=== PATIENT | female | born 2000 | race Caucasian/White ===

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

== ENCOUNTER 2021-04-16 18:37 | Emergency (ER) | payer OTHER, SELFPAY ==
[2021-04-16 18:38] VITALS: BP 102/75; PULSE 84; RESP 16; TEMP 36.4; O2SAT 100; BMI 25.4
--- NOTE | 2021-04-16 19:04 | EKG12_ITS ---
Test Reason : DYSRYTHMIA Blood Pressure : / mmHG Vent. Rate : 082 BPM Atrial Rate : 082 BPM P-R Int : 134 ms QRS Dur : 076 ms QT Int : 384 ms P-R-T Axes : 021 076 026 degrees QTc Int : 448 ms Normal sinus rhythm Normal ECG Confirmed by AMOR ADAM, BEN ([id number]), video effects editor ASHLEY BYRNES ([id number]) on 04/21/2021 7:34:38 AM Referred By: ESTHER Confirmed By:BEN CHINCHILLA MD
--- NOTE | 2021-04-16 19:05 | EX.ED.DYSGE1 ---
HPI History of Present Illness Chief Complaint: General Illness Informant: patient Narrative Narrative: 21-year-old female states that yesterday morning she woke with a temperature of 100.5. She noted a sore throat and fatigue and nausea. She went to urgent care where she had a Covid test that was negative. States she also did a home Covid test that was negative. She states that she is not had any fever today or sore throat but continues to feel fatigued and nausea has now developed a pain in her mid sternum of her chest. She states that it is intermittent there is a sharp component but a heaviness component as well. She notes no cough or significant rhinorrhea PFSH PFS Medical History (Updated 04/16/21 @ 20:[address] Williams Castellon DO) Anxiety Depression Migraine Physical exam, pre-employment Home Medications fluoxetine 20 mg PO DAILY 04/16/21 [History Last Taken Unknown] norgestimate-ethinyl estradiol [Aisha] 1 tab PO DAILY 04/16/21 [History Last Taken Unknown] ondansetron 4 mg PO Q6H PRN PRN #15 tab 04/16/21 [Rx Last Taken Unknown] sumatriptan succinate 50 mg PO X1 PRN 04/16/21 [History Last Taken Unknown] topiramate 25 mg PO DAILY 04/16/21 [History Last Taken Unknown] Allergy/AdvReac Type Severity Reaction Status Date / Time No Known Allergies Allergy Verified 04/16/21 18:40 Surgical History (Updated 04/16/21 @ 19:52 by Angelic Espinoza) History of cholecystectomy Social History (Updated 04/16/21 @ 19:[address] Williams Castellon DO) Smoking Status: Never smoker substance use type: does not use ROS ROS ED Constitutional Constitutional ED: Reports fever(s); Denies chills or weight loss Eyes Eyes: Denies change in vision or diplopia ENT ENT ED: Reports sore throat; Denies ear pain or rhinorrhea Cardiovascular Cardiovascular: Denies chest pain, orthopnea, palpitations or racing heartbeat Respiratory/Chest Respiratory/Chest: Denies cough, dyspnea or orthopnea Gastrointestinal Gastrointestinal: Reports nausea; Denies abdominal pain, diarrhea or vomiting Genitourinary Genitourinary ED: Denies dysuria, hematuria or urinary frequency Musculoskeletal Musculoskeletal: Denies arthralgias or myalgias Integumentary Denies abscess or rash Neurologic Neurologic: Denies headache(s) or weakness Psychiatric Psychiatric: Denies anxiety, depression, suicidal ideation or suicidal thoughts Endocrine Endocrinology: Denies polydipsia, polyphagia or polyuria Allergic/Immunologic Allergic/Immunologic ED: Denies mouth swelling, tongue swelling or urticaria EXAM Physical Exam Const Vital Signs: 04/16/21 18:38 04/16/21 19:51 Temperature 97.6 F L Temperature Source Temporal Pulse Rate 84 Respiratory Rate 16 Respiratory Effort Normal Non-Labored Respiratory Pattern Normal Blood Pressure 102/75 Blood Pressure Mean 84 Pulse Ox 100 Oxygen Delivery Method Room Air Positive well nourished and well developed General Appearance ED: well developed HEENT Reports normocephalic, head/scalp atraumatic and moist mucous membranes Eyes PERRL and EOMs intact bilaterally Neck no lymphadenopathy, supple and no JVD Resp normal respiratory effort and clear to auscultation bilaterally Cardio regular rate, regular rhythm and no murmurs GI normal to inspection, nondistended, normoactive bowel sounds and non-tender Palpation: soft Back/Spine no CVA tenderness and normal ROM Extremity normal to inspection General Extremety ED: Negative for edema General Extremity: Negative for edema Neuro oriented x3 and CN's II-XII intact bilaterally Sensorium / Orientation: alert Motor Exam: strength 5/5 throughout Psych mental status grossly normal Mood & Affect: Negative for depressed or tearful Skin no rashes or lesions noted and no wounds MDM MDM MDM Narrative Medical decision making narrative: Basic blood work including troponin were normal. Urinalysis negative. My interpretation of the chest x-ray is no acute process. Patient's EKG is normal. Patient's having nausea. She said to negative Covid test I do not think we need to repeat this at this time. She is not leukopenic. I will write for Zofran and would recommend taking some Pepcid or Prilosec. Lab Data Attestation: I reviewed the patient's lab results. Labs: Laboratory Results - last 24 hr 04/16/21 04/16/21 04/16/21 19:22 19:22 19:30 WBC 10.5 RBC 5.06 Hgb 11.9 L Hct 38.4 MCV 75.9 L MCH 23.5 L MCHC 31.0 L RDW Std Deviation 45.6 H RDW Coeff of Clif 16.8 H Plt Count 348 MPV 10.5 Immature Gran % (Auto) 0.400 Neut % (Auto) 76.3 H Lymph % (Auto) 15.6 L [place] % (Auto) 6.6 Eos % (Auto) 0.8 Baso % (Auto) 0.3 Absolute Neuts (auto) 8.0 H Absolute Lymphs (auto) 1.63 Nucleated RBC % 0 Sodium 138 Potassium 3.3 L Chloride 106 Carbon Dioxide 22.0 Anion Gap 10 BUN 5 L Creatinine 0.89 Estim Creat Clear Calc 86.34 Est GFR (MDRD) Af Amer 102 Est GFR (MDRD) Non-Af 85 BUN/Creatinine Ratio 5.6 L Glucose 84 Calcium 9.1 Total Bilirubin 0.40 AST 24 ALT 27 Alkaline Phosphatase 55 Troponin I High Sens 5 Total Protein 8.4 H Albumin 3.7 Globulin 4.7 H Albumin/Globulin Ratio 0.8 L Urine Color Yellow Urine Clarity Clear Urine pH 6.5 Ur Specific [place] 1.010 Urine Protein Negative Urine Glucose (UA) Normal Urine Ketones 5 H Urine Occult Blood Negative Urine Nitrite Negative Urine Bilirubin Negative Urine Urobilinogen Normal Ur Leukocyte Esterase 100 H Urine RBC 0 SEEN Urine WBC 0-5 SEEN Ur Squamous Epith Cells 0-5 SEEN Urine Bacteria 0 SEEN Urine Mucus 0 SEEN Radiography Diagnostic Testing: Radiology Impression Chest X-Ray 04/16/21 19:18 IMPRESSION: Normal x-ray examination of the chest. Electronically Signed: Олег Zayas DO at 19:48 EDT Tel [phone], Service support , EKG Initial EKG: Attestation: I personally reviewed and interpreted this EKG as follows: Comments: Normal sinus rhythm with a ventricular rate of 82 bpm Discharge Plan Triage Chief Complaint: General Illness ED Provider: Williams Castellon Dx/Rx/DC Orders Clinical Impression: Nausea, Chest pain Prescriptions: New ondansetron [ondansetron] 4 MG tablet 4 mg PO Q6H PRN PRN (Reason: Nausea) Qty: 15 RF: 0 No Action norgestimate-ethinyl estradiol [Aisha] 0.25-35 mg-mcg tablet 1 tab PO DAILY RF: 0 sumatriptan succinate 50 mg tablet 50 mg PO X1 PRN (Reason: Migraine Headache) RF: 0 topiramate 25 mg tablet 25 mg PO DAILY RF: 0 fluoxetine 20 mg capsule 20 mg PO DAILY RF: 0 Primary Care Provider: Maria E Jacobs Referrals: Maria E Jacobs MD [Primary Care Provider] - 1 Week if not improving Activity Restrictions/Additional Instructions: I would recommend taking Pepcid or Prilosec for the next couple days. Return if worsening or any concerns Disposition Disposition: Home, Self Care
--- NOTE | 2021-04-16 19:18 | RAD_ITS ---
STUDY: X-RAY CHEST REASON FOR EXAM: Female, 21 years old. Chest pain TECHNIQUE: Frontal view COMPARISON: None. FINDINGS: The lungs are clear and expanded. There is no demonstrated pleural abnormality. Normal size heart. Normal mediastinum and veronica. Normal visualized pulmonary arteries. Normal visualized aortic arch and descending thoracic aorta. Normal visualized thoracic spine. Normal visualized ribs, clavicles, and shoulders. There is no demonstrated abnormality of the visualized soft tissue structures of the upper abdomen. RAD/Chest 1 View (Portable) IMPRESSION: Normal x-ray examination of the chest. Electronically Signed: Олег Zayas DO at 19:48 EDT Tel [phone], Service support ,
[2021-04-16 19:31] LABS: Absolute Lymphocyte Count 1.63 X10^3/uL (0.83-4.51); Basophil# 0.03 X10^3/uL; Basophil% 0.3 % (0-1); Eosinophil# 0.08 X10^3/uL; Eosinophils% 0.8 % (0-5); Hematocrit 38.4 % (37-47); Hemoglobin 11.9 g/dL (12.0-15.0); Lymphocyte # 1.63 X10^3/ul (0.83-4.51); Lymphocyte % 15.6 % (19-41); Mean Corpuscular Hgb 23.5 pg (27.0-32.0); Mean Corpuscular Volume 75.9 fL (81-99); Mean Platelet Vol. 10.5 fl (6.2-12.0); Monocyte# 0.69 X10^3/uL; Monocyte% 6.6 % (0-10); NRBC Flagged by Analyzer 0 % (0-5); Neutrophil # 7.98 X10^3/uL (2.7-7.7); Neutrophil % 76.3 % (47-70); Platelet Count 348 K/mm3 (150-450); RBC Distribution Width CV 16.8 % (11.6-14.6); RBC Distribution Width SD 45.6 fl (35.1-43.9); Red Blood Count 5.06 M/mm3 (4.2-5.4); White Blood Count 10.5 K/mm3 (4.4-11.0)
[2021-04-16 19:44] LABS: Bacteria 0 SEEN /hpf (None Seen); Mucous, Urine 0 SEEN /hpf (<or=2+); Red Blood Cells-Urine 0 SEEN /hpf (0-5)
[2021-04-16] MEDS: Ondansetron 4 MG/2 ML Vial IV (19:48)
[2021-04-16 19:51] LABS: ALB/GLOB Ratio 0.8 RATIO (0.9-2.4); AST(SGOT) 24 U/L (15-37); Alanine Aminotransfer ALT/SGPT 27 U/L (13-56); Albumin, Serum 3.7 g/dL (3.2-5.0); Alkaline Phosphatase 55 U/L (45-117); Anion Gap 10 (5-15); BUN 5 mg/dL (7-18); BUN/Creat Ratio 5.6 RATIO (10-20); Calcium,Total 9.1 mg/dL (8.5-10.1); Chloride 106 mmol/L (98-107); Creatinine, Serum 0.89 mg/dL (0.55-1.02); EST Glomerular Filtration Rate 85 mL/min (>60); Est Glom Filt Rate - Afr Amer 102 mL/min (>60); Estimated Creatinine Clearance 86.34 ml/min; Globulin 4.7 g/dL (2.2-4.2); Glucose 84 mg/dL (74-106); Potassium 3.3 mmol/L (3.5-5.1); Protein, Total 8.4 g/dL (6.4-8.2); Sodium Level 138 mmol/L (136-145); Troponin-I HS 5 pg/mL (3.0-54.0)
[2021-04-16 20:10] LABS: Color, Urine Yellow (Yellow); Glucose, Dipstick Normal (Normal); Ketone-Dipstick 5 mg/dl (Negative); Leukocyte Esterase-Dipstick 100 /ul (Negative); Nitrite-Dipstick Negative (Negative); Occult Blood-Urine Negative /ul (Negative); Protein-Dipstick Negative (Negative); Urine Bilirubin Dipstick Negative (Negative); Urine Clarity Clear (Clear); Urine Urobilinogen Normal (Normal); Urine pH 6.5 (5.0 - 8.0)
[2021-04-16 20:23] LABS: Squamous Epithelial Cells - UA 0-5 SEEN /hpf (5-10); White Blood Cells 0-5 SEEN /hpf (0-5)
== END 2021-04-16 21:11 | disposition home or self-care (01) ==
PROVIDERS: Emergency Provider Emergency Medicine; PCP Internal Medicine
DX: R11.0 Nausea (principal); R07.89 Other chest pain; J02.9 Acute pharyngitis, unspecified; R53.83 Other fatigue; G43.909 Migraine, unspecified, not intractable, without status migrainosus; F32.9 Major depressive disorder, single episode, unspecified; F41.9 Anxiety disorder, unspecified; Z79.899 Other long term (current) drug therapy
CPT/HCPCS: 71045; 80053; 81001; 84484; 85025; 93005; 96374; 99283; A4216; J2405

== ENCOUNTER 2021-11-26 13:05 | Emergency (ER) | payer OTHER, SELFPAY ==
[2021-11-26 13:06] VITALS: BP 119/82; PULSE 81; RESP 18; TEMP 37.5; O2SAT 98; BMI 24.0
[2021-11-26 14:00] LABS: Bacteria 0 SEEN /hpf (None Seen); Mucous, Urine 0 SEEN /hpf (<or=2+)
[2021-11-26 14:02] LABS: Color, Urine Yellow (Yellow); Glucose, Dipstick Normal (Normal); Ketone-Dipstick 15 mg/dl (Negative); Leukocyte Esterase-Dipstick 25 /ul (Negative); Nitrite-Dipstick Negative (Negative); Occult Blood-Urine 10 /ul (Negative); Protein-Dipstick 15 mg/dl (Negative); Urine Bilirubin Dipstick Negative (Negative); Urine Clarity Sl. Cloudy (Clear); Urine Urobilinogen Normal (Normal)
[2021-11-26 14:08] LABS: Internal QC Validated? YES +Cl - CLEAR BKGD; Pregnancy, Urine Negative Negative; Red Blood Cells-Urine 0-5 SEEN /hpf (0-5); Squamous Epithelial Cells - UA 0-5 SEEN /hpf (5-10); White Blood Cells 0-5 SEEN /hpf (0-5)
[2021-11-26] MEDS: Ondansetron 4 MG/2 ML Vial IV (14:38)
--- NOTE | 2021-11-26 15:52 | EDS_ITS ---
HPI HPI - GI History of Present Illness Chief Complaint: Nausea/Vomiting Narrative Narrative: 21-year-old female presenting with nausea, vomiting, diffuse abdominal cramping. She states she had 1 episode of diarrhea. She states he had nasal congestion a couple days ago and now this is progressed. She denies cough or shortness of breath. No chest pain. 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 Patient did have some Zofran left over from previous which helped initially but she ran out. Not concerned for . No urinary symptoms. [facility] Medical History Anxiety Depression Migraine Physical exam, pre-employment Home Medications fluoxetine 20 mg PO DAILY 04/16/21 [History Last Taken Unknown] norgestimate-ethinyl estradiol [Aisha] 1 tab PO DAILY 04/16/21 [History Last Taken Unknown] ondansetron 4 mg PO Q6H PRN PRN #15 tab 04/16/21 [Rx Last Taken Unknown] sumatriptan succinate 50 mg PO X1 PRN 04/16/21 [History Last Taken Unknown] topiramate 25 mg PO DAILY 04/16/21 [History Last Taken Unknown] ondansetron 4 mg PO Q8H PRN #14 tab 11/26/21 [Rx Last Taken Unknown] Allergy/AdvReac Type Severity Reaction Status Date / Time No Known Allergies Allergy Verified 11/26/21 13:07 Surgical History History of cholecystectomy Social History Smoking Status: Never smoker substance use type: does not use ROS ROS ED Constitutional Constitutional ED: Denies chills or fever(s) ENT ENT ED: Reports rhinorrhea Cardiovascular Cardiovascular: Denies chest pain or palpitations Respiratory/Chest Respiratory/Chest: Denies cough or dyspnea Gastrointestinal Gastrointestinal: Reports abdominal pain, diarrhea, nausea and vomiting Genitourinary Genitourinary ED: Denies dysuria or hematuria Musculoskeletal Musculoskeletal: Reports myalgias; Denies arthralgias or neck pain Integumentary Denies rash Neurologic Neurologic: Denies headache(s) or weakness Psychiatric Psychiatric: Denies anxiety or depression EXAM Physical Exam Const Vital Signs: 11/26/21 13:06 Temperature 99.5 F H Temperature Source Temporal Pulse Rate 81 Respiratory Rate 18 Blood Pressure 119/82 H Blood Pressure Mean 94 Pulse Ox 98 Oxygen Delivery Method Room Air Positive well nourished General Appearance ED: NAD; Negative for pallor HEENT Reports moist mucous membranes normocephalic and atraumatic Eyes PERRL and EOMs intact bilaterally Neck supple Resp normal respiratory effort and clear to auscultation bilaterally Cardio regular rate and regular rhythm GI non-distended Auscultation: normoactive bowel sounds Palpation: soft; Negative for guarding, rigid or rebound tenderness present Neuro Sensorium / Orientation: alert, oriented to person, oriented to place and oriented to time Psych mental status grossly normal and thought process normal Skin General Skin Exam: Negative for jaundice or pallor Lesions: no lesions Rashes: no rashes MDM MDM MDM Narrative Medical decision making narrative: Patient presents with nausea and vomiting. I did check a urinalysis which is negative for infection. hCG negative. Patient's abdominal exam is benign. After examining her the patient was amenable to trying Zofran before doing blood work and imaging. After given Zofran she is very comfortable and feels very much improved. Repeat abdominal exam still benign. Vital signs are stable and she is afebrile. I did not believe she needed blood work or imaging. At this point she request to be tested for COVID although she tested herself prior to coming and it was negative. COVID testing here is negative. Patient will be given Zofran for home. She is counseled to keep hydrated. Tylenol and ibuprofen for any fever or chills. Patient discharged home in stable condition. Impression: 1 abdominal pain 2 nausea/vomiting 3. Diarrhea Lab Data Attestation: I reviewed the patient's lab results. Labs: Laboratory Results - last 24 hr 11/26/21 13:58 Urine Color Yellow Urine Clarity Sl. Cloudy Urine pH 8.0 Ur Specific [place] 1.010 Urine Protein 15 H Urine Glucose (UA) Normal Urine Ketones 15 H Urine Occult Blood 10 H Urine Nitrite Negative Urine Bilirubin Negative Urine Urobilinogen Normal Ur Leukocyte Esterase 25 H Urine RBC 0-5 SEEN Urine WBC 0-5 SEEN Ur Squamous Epith Cells 0-5 SEEN Urine Bacteria 0 SEEN Urine Mucus 0 SEEN Urine Test Negative Discharge Plan Triage Chief Complaint: Nausea/Vomiting ED Provider: Boris Berg Dx/Rx/DC Orders Instructions: ED Vomiting (Adult) Prescriptions: New ondansetron 4 mg tablet,disintegrating 4 mg PO Q8H PRN (Reason: nausea and vomiting) Qty: 14 RF: 0 No Action norgestimate-ethinyl estradiol [Aisha] 0.25-35 mg-mcg tablet 1 tab PO DAILY RF: 0 sumatriptan succinate 50 mg tablet 50 mg PO X1 PRN (Reason: Migraine Headache) RF: 0 topiramate 25 mg tablet 25 mg PO DAILY RF: 0 fluoxetine 20 mg capsule 20 mg PO DAILY RF: 0 ondansetron [ondansetron] 4 MG tablet 4 mg PO Q6H PRN PRN (Reason: Nausea) Qty: 15 RF: 0 Primary Care Provider: Maria E Jacobs Referrals: Maria E Jacobs MD [Primary Care Provider] - Juan C Johnsno DO [STAFF PHYSICIAN] - 3-5 Days Disposition Disposition: Home, Self Care Discharge Date/Time: 11/26/21 15:36
== END 2021-11-26 15:36 | disposition home or self-care (01) ==
PROVIDERS: Emergency Provider Student in an Organized Health Care Education/Training Program; PCP Internal Medicine; Visit Provider Student in an Organized Health Care Education/Training Program
DX: R11.2 Nausea with vomiting, unspecified (principal); Z79.899 Other long term (current) drug therapy; R19.7 Diarrhea, unspecified; R10.9 Unspecified abdominal pain; Z20.822 Contact with and (suspected) exposure to COVID-19
CPT/HCPCS: 81001; 81025; 87811; 96374; 99284; A4216; J2405

== ENCOUNTER → 2022-02-16 | Outpatient (CLI) | payer OTHER, SELFPAY ==
[2022-02-16 15:33] LABS: Absolute Lymphocyte Count 1.76 X10^3/uL (0.83-4.51); Absolute Neutrophil Count 3.3 X10^3/uL (2.0-7.7); Basophil# 0.04 X10^3/uL; Basophil% 0.7 % (0-1); Eosinophil# 0.06 X10^3/uL; Eosinophils% 1.1 % (0-5); Hematocrit 41.9 % (37-47); Hemoglobin 13.9 g/dL (12.0-15.0); Lymphocyte # 1.76 X10^3/ul (0.83-4.51); Lymphocyte % 30.8 % (19-41); Mean Corp Hgb Conc 33.2 g/dL (32-36); Mean Corpuscular Hgb 30.2 pg (27.0-32.0); Mean Corpuscular Volume 90.9 fL (81-99); Mean Platelet Vol. 10.5 fl (6.2-12.0); Monocyte# 0.51 X10^3/uL; Monocyte% 8.9 % (0-10); NRBC Flagged by Analyzer 0 % (0-5); Neutrophil # 3.32 X10^3/uL (2.7-7.7); Neutrophil % 58.1 % (47-70); Platelet Count 267 K/mm3 (150-450); RBC Distribution Width CV 12.8 % (11.6-14.6); RBC Distribution Width SD 42.8 fl (35.1-43.9); Red Blood Count 4.61 M/mm3 (4.2-5.4); White Blood Count 5.7 K/mm3 (4.4-11.0)
[2022-02-16 15:50] LABS: Erythrocyte Sedimentation Rate 4 mm/hr (0-30)
[2022-02-16 16:32] LABS: ALB/GLOB Ratio 1.1 RATIO (0.9-2.4); AST(SGOT) 18 U/L (15-37); Alanine Aminotransfer ALT/SGPT 36 U/L (13-56); Alkaline Phosphatase 82 U/L (45-117); Anion Gap 5 (5-15); BUN 8 mg/dL (7-18); BUN/Creat Ratio 11.3 RATIO (10-20); CRP < 2.90 mg/L (0.0-3.0); Calcium,Total 9.2 mg/dL (8.5-10.1); Chloride 104 mmol/L (98-107); Creatinine, Serum 0.71 mg/dL (0.55-1.02); EST Glomerular Filtration Rate 110 mL/min (>60); Est Glom Filt Rate - Afr Amer 133 mL/min (>60); Globulin 3.6 g/dL (2.2-4.2); Glucose 75 mg/dL (74-106); LDH 149 U/L (84-246); Potassium 3.7 mmol/L (3.5-5.1); Protein, Total 7.6 g/dL (6.4-8.2); Sodium Level 138 mmol/L (136-145)
[2022-02-18 12:08] LABS: Anti-Centromere B Ab <0.2 AI (0.0-0.9); Anti-Chromatin <0.2 AI (0.0-0.9); Anti-Jo <0.2 AI (0.0-0.9); Anti-Scleroderma-70 AB 0.2 AI (0.0-0.9); RNP Ab <0.2 AI (0.0-0.9); SJOGREN'S Anti-SS-A test < 0.2 AI (0.0-0.9); SJOGREN'S Anti-SS-B test < 0.2 AI (0.0-0.9); Smith Ab <0.2 AI (0.0-0.9)
[2022-02-18 15:08] LABS: Endomysial Antibody IgA Negative (Negative)
[2022-02-18 16:20] LABS: Anti-dsDNA Ab 3 IU/mL (0-9)
[2022-02-18 16:23] LABS: Immunoglobulin A 232 mg/dL (87-352); t-Transglutaminase IgA <2 U/mL (0-3)
[2022-02-20 22:06] LABS: Albumin 3.9 g/dL (2.9-4.4); Alpha-1-Globulins 0.2 g/dL (0.0-0.4); Alpha-2-Globulins 0.6 g/dL (0.4-1.0); Cytoplasmic Ab (C-ANCA) <1:20 titer (Neg:<1:20); Gamma Globulin 1.4 g/dL (0.4-1.8); Immunoglobulin A 219 mg/dL (87-352); Immunoglobulin E 40 IU/mL (6-495); Immunoglobulin G 1298 mg/dL (586-1602); Immunoglobulin M 150 mg/dL (26-217); PROEL- TOTAL PROTEIN 6.9 g/dL (6.0-8.5)
[2022-02-20 22:11] LABS: Perinuclear Ab (P-ANCA) <1:20 titer (Neg:<1:20)
== END | disposition home or self-care (01) ==
LOC: LAB 14:18
PROVIDERS: PCP Internal Medicine; Visit Provider Internal Medicine Gastroenterology
DX: R10.9 Unspecified abdominal pain (principal)
CPT/HCPCS: 36415; 80053; 82784; 82785; 83516; 83615; 84165; 85025; 85652; 86140; 86225; 86235; 86255; 86256; 86334

== ENCOUNTER → 2022-03-26 | Outpatient (CLI) | payer OTHER, SELFPAY ==
[2022-03-31 13:37] LABS: Calprotectin, Stool 141 ug/g (0-120)
[2022-04-01 11:49] LABS: Pancreatic Elastase, Fecal > 500 (>200)
== END | disposition home or self-care (01) ==
LOC: LABSPEC 15:51
PROVIDERS: PCP Internal Medicine; Referring Provider Internal Medicine Gastroenterology; Visit Provider Internal Medicine Gastroenterology
DX: R10.9 Unspecified abdominal pain (principal); K58.9 Irritable bowel syndrome, unspecified
CPT/HCPCS: 82653; 83630; 83993; 87177; 87209; 87506

== ENCOUNTER → 2022-08-06 | Outpatient (CLI) | payer OTHER, SELFPAY ==
[2022-08-06 14:55] LABS: Absolute Lymphocyte Count 1.44 X10^3/uL (0.83-4.51); Absolute Neutrophil Count 4.6 X10^3/uL (2.0-7.7); Basophil# 0.02 X10^3/uL; Basophil% 0.3 % (0-1); Eosinophil# 0.04 X10^3/uL; Eosinophils% 0.6 % (0-5); Hematocrit 41.5 % (37-47); Hemoglobin 13.9 g/dL (12.0-15.0); Lymphocyte # 1.44 X10^3/ul (0.83-4.51); Lymphocyte % 21.8 % (19-41); Mean Corp Hgb Conc 33.5 g/dL (32-36); Mean Corpuscular Hgb 29.7 pg (27.0-32.0); Mean Corpuscular Volume 88.7 fL (81-99); Mean Platelet Vol. 9.7 fl (6.2-12.0); Monocyte# 0.47 X10^3/uL; Monocyte% 7.1 % (0-10); NRBC Flagged by Analyzer 0 % (0-5); Neutrophil # 4.58 X10^3/uL (2.7-7.7); Neutrophil % 69.4 % (47-70); Platelet Count 315 K/mm3 (150-450); Red Blood Count 4.68 M/mm3 (4.2-5.4); White Blood Count 6.6 K/mm3 (4.4-11.0)
[2022-08-06 15:00] LABS: Erythrocyte Sedimentation Rate 9 mm/hr (0-30)
[2022-08-06 16:30] LABS: AST(SGOT) 34 U/L (15-37); Alanine Aminotransfer ALT/SGPT 60 U/L (13-56); Albumin, Serum 3.8 g/dL (3.2-5.0); Alkaline Phosphatase 90 U/L (45-117); Anion Gap 4 (5-15); BUN 8 mg/dL (7-18); BUN/Creat Ratio 11.5 RATIO (10-20); CRP < 2.90 mg/L (0.0-3.0); Calcium,Total 9.1 mg/dL (8.5-10.1); Chloride 104 mmol/L (98-107); EST Glomerular Filtration Rate 111 mL/min (>60); Est Glom Filt Rate - Afr Amer 135 mL/min (>60); Free T3 2.2 pg/mL (2.18-3.98); Globulin 3.9 g/dL (2.2-4.2); Glucose 103 mg/dL (74-106); Potassium 3.7 mmol/L (3.5-5.1); Protein, Total 7.7 g/dL (6.4-8.2); Sodium Level 139 mmol/L (136-145); T4 Free Direct 0.79 ng/dL (0.76-1.46); Thyroid Stim Hormone (TSH) 1.37 uIU/mL (0.358-3.74)
[2022-08-10 18:26] LABS: Gastrin, Serum 75 pg/mL (0-115)
== END | disposition home or self-care (01) ==
PROVIDERS: PCP Internal Medicine; Referring Provider Internal Medicine Gastroenterology; Visit Provider Internal Medicine Gastroenterology
DX: R10.9 Unspecified abdominal pain (principal)
CPT/HCPCS: 36415; 80053; 82941; 84439; 84443; 84481; 85025; 85652; 86140

== ENCOUNTER 2023-03-18 11:21 | Outpatient (CLI) | payer OTHER, MEDICAID, SELFPAY ==
[2023-03-18 11:41] VITALS: BP 111/64
[2023-03-18 11:42] VITALS: PULSE 80; TEMP 37.2; O2SAT 97; O2SAT 98
[2023-03-18 12:00] VITALS: BMI 30.9
[2023-03-18 12:35] LABS: Mucous, Urine 0 SEEN /hpf (<or=2+); Red Blood Cells-Urine 0 SEEN /hpf (0-5)
[2023-03-18 12:41] LABS: Color, Urine Yellow (Yellow); Glucose, Dipstick Normal (Normal); Ketone-Dipstick Negative (Negative); Leukocyte Esterase-Dipstick 25 /ul (Negative); Nitrite-Dipstick Negative (Negative); Occult Blood-Urine Negative /ul (Negative); Protein-Dipstick Negative (Negative); Urine Bilirubin Dipstick Negative (Negative); Urine Clarity Sl. Cloudy (Clear); Urine Urobilinogen Normal (Normal)
[2023-03-18 12:47] LABS: Bacteria 1+ /hpf (None Seen); Squamous Epithelial Cells - UA 0-5 SEEN /hpf (5-10); White Blood Cells 0-5 SEEN /hpf (0-5)
[2023-03-18] MEDS: LACTATED RINGERS 500 ML 999 ML IV ×2 (12:51→14:28)
[2023-03-18] MEDS: Nitrofurantoin Macrocrystals 100 MG Capsule PO (14:33)
--- NOTE | 2023-03-18 19:36 | OB.TRI.NOTE ---
HPI - General HPI Narrative ESPERANZA FLOYD, is a 22 F @ 33.3 weeks gestation who presents with cramping and lower back pain. Positive movement. Denies any loss of fluid or vaginal bleeding. Maternal Data Information DON Calculator Estimated Delivery Date Method Current WG Current Estimate 05/03/23 Manual 33w 3d PFSH PFS Medical History Anxiety Depression Fracture of fifth metatarsal bone of left foot Migraine Physical exam, pre-employment Home Medications fluoxetine 40 mg capsule 40 mg PO DAILY 02/09/23 [History Last Taken 03/18/23 07:00] Prena-Tab See Rx Instructions .Route .COMPLEX 03/18/23 [History Last Taken 03/18/23 07:00] ferrous sulfate 325 mg (65 mg iron) tablet (Feosol) 325 mg PO DAILY 03/18/23 [History Last Taken 03/18/23 07:00] Allergy/AdvReac Type Severity Reaction Status Date / Time No Known Allergies Allergy Verified 03/18/23 12:02 Surgical History H/O wisdom tooth extraction History of cholecystectomy Social History Smoking Status: Never smoker substance use type: does not use ROS Eyes Eyes: Denies blurry vision Cardiovascular Cardiovascular: Reports none; Denies chest pain at rest, chest pain with activity or dizziness Respiratory/Chest Respiratory/Chest: Denies cough or dyspnea Gastrointestinal Gastrointestinal: Reports none and other; Denies diarrhea or vomiting Genitourinary Genitourinary: Denies dysuria Musculoskeletal Musculoskeletal: Reports none Integumentary Integumentary: Reports none; Denies rash Neurologic Neurologic: Denies dizziness, headache(s) or other visual disturbances Psychiatric Psychiatric: Reports none Physical Exam Const alert and no apparent distress General Appearance: cooperative Orientation / Consciousness: awake Exam Limitations: no limitations HEENT normocephalic Eyes General Eye: normal appearance of both eyes Neck full ROM Chest inspection of chest normal Resp normal respiratory effort and normal air movement Effort and Inspection: symmetric chest movement Auscultation: clear to auscultation bilaterally Cardio regular rate GI soft to palpation, non-tender and non-distended Inspection: and other Back/Spine normal ROM Extremity full ROM, normal capillary refill and no calf tenderness Skin no rashes or lesions noted Neuro oriented x3 and CN's II-XII intact bilaterally Psych mental status grossly normal NST FHR Rate Baby A Baseline: 125 Variability:: Moderate Accelerations:: 15 x 15 Decelerations:: None NST Reactive:: Yes FHR Category:: Category I Uterine Activity:: Irregular Assessment & Plan (1) 33 weeks gestation of : (2) contractions: (3) Back pain: PLAN: Plan NST reactive Start IV fluids and give 1000 liter bolus PO fluids UA- positive for leuk.estrace and bacteria- sent for culture Start Macrobid 100 mg PO BID x 7 days CE- closed /thick/ high- unchanged after extended monitoring labor precautions reviewed and when to return to hospital Dr. Sanches involved in plan of care
== END 2023-03-18 16:14 | disposition home or self-care (01) ==
LOC: WPOUT 11:24 → WP 11:24
PROVIDERS: PCP Internal Medicine; Referring Provider Advanced Practice Midwife; Visit Provider Advanced Practice Midwife
DX: O47.03 False labor before 37 completed weeks of gestation, third trimester (principal); O99.343 Other mental disorders complicating pregnancy, third trimester; O99.891 Other specified diseases and conditions complicating pregnancy; F41.9 Anxiety disorder, unspecified; F32.A Depression, unspecified; M54.50 Low back pain, unspecified; Z79.899 Other long term (current) drug therapy; Z3A.33 33 weeks gestation of pregnancy
CPT/HCPCS: 96365; 96366; 59025; 59050; 81001; 87086; 99221; J7120; G0378

== ENCOUNTER 2023-04-05 11:43 | Outpatient (CLI) | payer OTHER, MEDICAID, SELFPAY ==
[2023-04-05 12:00] VITALS: BP 132/77; PULSE 75; PULSE 79; O2SAT 99
[2023-04-05 12:03] VITALS: TEMP 37.6
[2023-04-05 12:09] VITALS: BMI 30.4
[2023-04-05 12:45] LABS: ROM Internal Control Test YES-OK TO RESULT pt. (Internal QC)
[2023-04-05 12:46] LABS: ROM Patient Test Negative (Negative); Record Kit Lot#, ROM+ K1409
--- NOTE | 2023-04-08 09:39 | OB.TRI.NOTE ---
HPI - General General Date of Admission: 04/05/23 Date of Service: 04/05/23 Chief Complaint: LOF HPI Narrative ESPERANZA FLOYD, is a 23 F who presents at 36 week gestation with an episode of leaking fluid after standing up from using restroom. No vb, or regular painful ctx's. Good FM. Maternal Data Information DON Calculator Estimated Delivery Date Method Current WG Current Estimate 05/03/23 Manual 36w 3d PFSH PFSH Medical History Anxiety Depression Fracture of fifth metatarsal bone of left foot Migraine Physical exam, pre-employment Home Medications fluoxetine 40 mg capsule 40 mg PO DAILY 02/09/23 [History Last Taken 04/05/23 08:15] Prena-Tab See Rx Instructions .Route .COMPLEX 03/18/23 [History Last Taken 04/05/23 08:15] ferrous sulfate 325 mg (65 mg iron) tablet (Feosol) 325 mg PO DAILY 03/18/23 [History Last Taken 04/05/23 08:15] Allergy/AdvReac Type Severity Reaction Status Date / Time No Known Allergies Allergy Verified 04/05/23 12:14 Surgical History H/O wisdom tooth extraction History of cholecystectomy Social History Smoking Status: Never smoker substance use type: does not use NST FHR Rate Baby A Baseline: 135 Variability:: Moderate Accelerations:: 15 x 15 Decelerations:: None NST Reactive:: Yes FHR Category:: Category I Uterine Activity:: Uterine irritability Assessment & Plan (1) 36 weeks gestation of : PLAN: ROM plus negative NST reactive Discharge home with follow up in office (2) Vaginal discharge:
== END 2023-04-05 13:45 | disposition home or self-care (01) ==
LOC: WPOUT 11:48 → WP 11:53
PROVIDERS: PCP Internal Medicine; Referring Provider Obstetrics & Gynecology; Visit Provider Obstetrics & Gynecology
DX: O47.03 False labor before 37 completed weeks of gestation, third trimester (principal); O99.343 Other mental disorders complicating pregnancy, third trimester; F41.9 Anxiety disorder, unspecified; F32.A Depression, unspecified; Z3A.36 36 weeks gestation of pregnancy; Z79.899 Other long term (current) drug therapy
CPT/HCPCS: 59025; 59050; 84112

== ENCOUNTER 2023-04-13 11:15 | Emergency (ER) | payer OTHER, MEDICAID, SELFPAY ==
[2023-04-13 11:16] VITALS: BP 140/78; PULSE 75; RESP 18; TEMP 36.1; O2SAT 96; BMI 30.7
--- NOTE | 2023-04-13 11:46 | ED.VIS.CHEST ---
HPI History of Present Illness Chief Complaint: Palpitations Detail of Chief Complaint: Chest pain. Informant: patient Onset/Context/Timing Onset: Today Activity at onset: sudden Timing: Continuous Quality: Positive for Heaviness Location: Substernal, Right Chest and Left Chest Current Severity: Gone Maximum Severity: Mild Worsened By: Nothing Relieved By: Nothing Associated Symptoms: Positive for Dyspnea; Negative for Nausea, Vomiting or Diaphoresis Narrative Narrative: 23-year-old female third trimester without any significant past medical history. 1 to 2 hours ago she was at home started and sudden onset of decelerated heart rate again as high as 185. No prior history of any type of tachycardia. Denies recent illness. No fever. No recent chest pain. Says her heart speeded up she did start getting some chest discomfort throughout her chest. No radiation to her back or neck. Says she felt short of breath when her heart was racing. The tachycardia has resolved and she feels better now. She said on her smart watch it was as high as [address] No prior history of DVT or PE. No hemoptysis. No pleuritic pain. No family history of clotting disorder. Prior Similar Symptoms: No Recent Illness/Hospitalization: No CVD Risk Factors: Negative for Hypertension, Diabetes or Hypercholesterolemia PE Risk Factors: Negative for Recent Travel/Surgery, Recent Immobilization, Prior DVT or PE, Cancer or OCP + Smoking + >/=35 TAD Risk Factors: Negative for Marfan's Syndrome [facility] Medical History Anxiety Depression Fracture of fifth metatarsal bone of left foot Migraine Physical exam, pre-employment Home Medications fluoxetine 40 mg capsule 40 mg PO DAILY 02/09/23 [History Last Taken 04/05/23 08:15] Prena-Tab See Rx Instructions .Route .COMPLEX 03/18/23 [History Last Taken 04/05/23 08:15] ferrous sulfate 325 mg (65 mg iron) tablet (Feosol) 325 mg PO DAILY 03/18/23 [History Last Taken 04/05/23 08:15] Allergy/AdvReac Type Severity Reaction Status Date / Time No Known Allergies Allergy Verified 04/13/23 11:18 Surgical History H/O wisdom tooth extraction History of cholecystectomy Social History Smoking Status: Never smoker substance use type: does not use ROS ROS ED ROS Narrative Denies recent illness. Review of Systems ROS Unobtainable: Denies due to encephalopathy Constitutional Constitutional ED: Denies chills or fever(s) Eyes Eyes: Reports none ENT ENT ED: Denies ear pain Cardiovascular Cardiovascular: Reports as per HPI, chest pain, palpitations and racing heartbeat Respiratory/Chest Respiratory/Chest: Reports dyspnea; Denies cough Gastrointestinal Gastrointestinal: Denies abdominal pain Genitourinary Genitourinary ED: Denies dysuria or hematuria Musculoskeletal Musculoskeletal: Denies arthralgias or back pain Integumentary Denies abscess or Abrasions Neurologic Neurologic: Denies headache(s) Psychiatric Psychiatric: Denies anxiety Endocrine Endocrinology: Denies cold intolerance Hematologic/Lymphatic Hematologic/Lymphatic: Denies easy bleeding, easy bruising or lymphadenopathy Allergic/Immunologic Allergic/Immunologic ED: Denies mouth swelling, tongue swelling or urticaria EXAM Physical Exam Narrative Exam Narrative: Appearing 23-year-old female. Vital signs stable afebrile. Pulse ox 96% on room air no signs hypoxia. H EENT exam unremarkable. Neck nontender no JVD. Lungs clear to auscultation bilaterally. Heart regular rhythm rate about 75 no murmur. Chest were nontender. Abdomen soft nontender. Gravid nontender uterus. She feels baby moving. Moving all 4 extremities. Nontender no edema. No cords. Calves are nontender. Equal symmetrical radial pulses. Neurologically she is awake and alert. No focal motor deficits. Const Vital Signs: 04/13/23 11:16 04/13/23 11:54 04/13/23 12:28 Temperature 97 F L Temperature Source Temporal Pulse Rate 75 97 Respiratory Rate 18 13 Blood Pressure 140/78 H Blood Pressure Mean 98 Pulse Ox 96 99 97 Oxygen Delivery Method Room Air Room Air Room Air Positive well nourished and well developed; Negative for cachectic, contractures or unkempt General Appearance ED: well developed and NAD; Negative for unkempt, cachectic, contractures or pallor Nutritional Appearance: Negative for cachectic HEENT Reports moist mucous membranes normocephalic and atraumatic; Negative for trauma or tenderness Eyes PERRL and EOMs intact bilaterally General Eye ED: Negative for pale conjunctiva or scleral icterus Neck no lymphadenopathy, supple and no JVD General: Negative for tenderness or other Chest Wall inspection of chest normal and palpation of chest normal Chest: Negative for tenderness Resp normal respiratory effort and clear to auscultation bilaterally Effort and Inspection: Negative for respiratory distress Auscultation: Negative for rales, rhonchi or wheezes Cardio regular rate, regular rhythm, S1 normal heart sound, S2 normal heart sound and no murmurs Rate: Negative for bradycardia or tachycardic Rhythm: Negative for abnormal rhythm Peripheral Pulses: pulses 2+ throughout GI normal to inspection, nondistended, normoactive bowel sounds, soft to palpation, non-tender, non-distended and no masses Auscultation: Negative for hyperactive bowel sounds Palpation: Negative for splenomegaly, mass or other Back/Spine no CVA tenderness and no thoracic nor lumbar tenderness General Back: Negative for CVA tenderness Cervical Spine: Negative for cervical spine tenderness Extremity normal to inspection General Extremety ED: Negative for edema, pulses abnormal or tenderness General Extremity: Negative for edema or pulses abnormal Neuro oriented x3 and CN's II-XII intact bilaterally Sensorium / Orientation: awake and alert Motor Exam: strength 5/5 throughout; Negative for general weakness Psych mental status grossly normal Appearance: Negative for unkempt Attitude: No agitated Mood & Affect: Negative for depressed, anxious or tearful Skin no rashes or lesions noted and no wounds General Skin Exam: Negative for jaundice, pallor or other Rashes: No rashes noted Trauma: Negative for abrasion or laceration Heart Score History: Slightly/Non-Suspicious ECG: Normal Age: </= 45 years Risk Factors: No Risk Factors Troponin: </= Normal Limit Score: 0 MDM MDM MDM Narrative Medical decision making narrative: 23-year-old female third trimester with palpitations, axillary area and chest pain. That is all resolved. Differential would include a tachycardia such as an SVT. Consider PE. At her age and health I do not think this is an VA or dissection. She will undergo cardiac work-up with a D-dimer. Repeat exam she is doing well at 2:44 PM. She had a tachycardia that since resolved. She will be discharged home with outpatient follow-up. History & Record Review Discussion w/independent historian: Patient and Family Additional record(s) reviewed:: Prior inpatient record, Prior outpatient record, Prior ED visit and Prior labs Lab Data Attestation: I reviewed the patient's lab results. Lab results narrative: CT shows a white count 8.9. H&H 11.8 and 35. She has a baseline anemia . D-dimer elevated 1.26. Electrolytes show potassium 3.3. Gap of 8. Normal BUN and creatinine is 0.5. Glucose 81. Initial troponin 10. 2-hour troponin 52. Normal. D-dimer elevated 1.26. CTA of the chest no PE. Labs: Laboratory Results - last 24 hr 04/13/23 04/13/23 11:36 13:35 WBC 8.9 RBC 3.90 L Hgb 11.8 L Hct 35.1 L MCV 90.0 MCH 30.3 MCHC 33.6 RDW Std Deviation 45.2 H RDW Coeff of Clif 13.8 Plt Count 178 MPV 11.6 Immature Gran % (Auto) 2.100 H Neut % (Auto) 75.2 H Lymph % (Auto) 14.5 L [place] % (Auto) 7.5 Eos % (Auto) 0.3 Baso % (Auto) 0.4 Absolute Neuts (auto) 6.7 Absolute Lymphs (auto) 1.29 Nucleated RBC % 0 D-Dimer Quant (PE/DVT) 1.26 H* Sodium 139 Potassium 3.3 L Chloride 110 H Carbon Dioxide 21.0 Anion Gap 8 BUN 4 L Creatinine 0.56 Estim Creat Clear Calc 140.59 Est GFR (MDRD) Af Amer 174 Est GFR (MDRD) Non-Af 144 BUN/Creatinine Ratio 7.2 L Glucose 81 Calcium 8.6 Troponin I High Sens 10 52 Radiography Diagnostic Testing: Clinical Impression(s) from Imaging Studies Chest CTA 04/13/23 12:36 IMPRESSION: Small bilateral pleural effusions with mild bibasilar atelectasis. Electronically Signed: Phillip Olvera MD at 13:34 EDT , Rhythm Strip Rhythm Strip: Sinus Rhythm Rate: 95 Ectopy: None and PAC(s) EKG Initial EKG: Attestation: I personally reviewed and interpreted this EKG as follows: Interpretation: Sinus Rhythm and No Acute Injury Pattern Comments: Normal, sinus rhythm rate 95 with PACs. Prior EKG tracings: not available for review Discharge Plan Triage Chief Complaint: Palpitations ED Provider: Phuc Blanton Dx/Rx/DC Orders Clinical Impression: Palpitations, Tachycardia, Third trimester Instructions: ED Palpitations Prescriptions: No Action fluoxetine 40 mg capsule 40 mg PO DAILY Patient Comments: TAKE 1 CAPSULE BY MOUTH ONCE DAILY ferrous sulfate [Feosol] 325 mg (65 mg iron) tablet 325 mg PO DAILY Prena-Tab See Rx Instructions .ROUTE .COMPLEX Rx Instructions: daily for prenancy Primary Care Provider: Maria E Jacobs Referrals: Maria E Jacobs MD [Primary Care Provider] - Activity Restrictions/Additional Instructions: Your tests look good. No blood clot. You are just mildly anemic with a hemoglobin 11.8 which is very common in . Follow-up with your [employer]. If you have other episodes they may want to do a grey goods tester to rule out any type of abnormal heart rhythm. No signs of that today. Disposition Disposition: Home, Self Care
[2023-04-13 11:54] VITALS: O2SAT 99
[2023-04-13 12:12] LABS: Absolute Lymphocyte Count 1.29 X10^3/uL (0.83-4.51); Absolute Neutrophil Count 6.7 X10^3/uL (2.0-7.7); Basophil# 0.04 X10^3/uL; Basophil% 0.4 % (0-1); Eosinophil# 0.03 X10^3/uL; Eosinophils% 0.3 % (0-5); Hematocrit 35.1 % (37-47); Hemoglobin 11.8 g/dL (12.0-15.0); Lymphocyte # 1.29 X10^3/ul (0.83-4.51); Lymphocyte % 14.5 % (19-41); Mean Corp Hgb Conc 33.6 g/dL (32-36); Mean Corpuscular Hgb 30.3 pg (27.0-32.0); Mean Platelet Vol. 11.6 fl (6.2-12.0); Monocyte# 0.67 X10^3/uL; Monocyte% 7.5 % (0-10); NRBC Flagged by Analyzer 0 % (0-5); Neutrophil % 75.2 % (47-70); Platelet Count 178 K/mm3 (150-450); RBC Distribution Width CV 13.8 % (11.6-14.6); RBC Distribution Width SD 45.2 fl (35.1-43.9); White Blood Count 8.9 K/mm3 (4.4-11.0)
[2023-04-13 12:25] LABS: Anion Gap 8 (5-15); BUN 4 mg/dL (7-18); BUN/Creat Ratio 7.2 RATIO (10-20); Calcium,Total 8.6 mg/dL (8.5-10.1); Chloride 110 mmol/L (98-107); Creatinine, Serum 0.56 mg/dL (0.55-1.02); EST Glomerular Filtration Rate 144 mL/min (>60); Est Glom Filt Rate - Afr Amer 174 mL/min (>60); Estimated Creatinine Clearance 140.59 ml/min; Glucose 81 mg/dL (74-106); Potassium 3.3 mmol/L (3.5-5.1); Sodium Level 139 mmol/L (136-145); Troponin-I HS (w/2H Reflex) 10 pg/mL (3.0-54.0)
[2023-04-13 12:28] VITALS: PULSE 97; RESP 13; O2SAT 97
[2023-04-13 12:31] LABS: D-Dimer Quantitative (DVT/PE) 1.26 FEU/ug/m (0.27-0.49)
--- NOTE | 2023-04-13 12:36 | CT_ITS ---
STUDY: CTA CHEST REASON FOR EXAM: Female, 23 years old. CP and elevated d-dimer. 3rd trimester . The patient is shielded appropriately. RADIATION DOSAGE (If Supplied By Facility): CTDIvol = ( 11.03 ) mGy, DLP = ( 375.79 ) mGycm TECHNIQUE: The examination was performed with the intravenous administration of IV 100mL Isovue-370. Post-processing of the angiographic images was performed, with multiplanar reformation and 3D reconstruction. Individualized dose optimization techniques were used for this CT. COMPARISON: None. FINDINGS: Normal enhancement of the main pulmonary artery and right and left pulmonary arteries. Normal enhancement of the bilateral peripheral pulmonary arteries. There is no demonstrated pulmonary embolism. Normal thoracic aorta and visualized great vessels. There is no demonstrated aortic dissection. Normal heart and pericardium. Normal mediastinum. Normal hilar regions. Normal visualized trachea and bronchi. The lungs are well expanded. Normal pulmonary parenchyma. Small bilateral pleural effusions and mild bibasilar atelectasis. Normal chest wall structures. Normal osseous structures. Normal visualized upper abdomen. CT/CTA Chest W/WO Contrast IMPRESSION: Small bilateral pleural effusions with mild bibasilar atelectasis. Electronically Signed: Phillip Olvera MD at 13:34 EDT ,
[2023-04-13 14:05] LABS: Reflex Troponin-HS? (from REC) Y
[2023-04-13 14:41] LABS: Troponin-I HS 52 pg/mL (3.0-54.0)
[2023-04-13 14:58] VITALS: BP 124/69; PULSE 72; RESP 15; O2SAT 98
== END 2023-04-13 14:59 | disposition home or self-care (01) ==
PROVIDERS: Emergency Provider Emergency Medicine; PCP Internal Medicine; Visit Provider Emergency Medicine
DX: O99.891 Other specified diseases and conditions complicating pregnancy (principal); R00.2 Palpitations; R00.0 Tachycardia, unspecified; Z3A.00 Weeks of gestation of pregnancy not specified
CPT/HCPCS: 71275; 80048; 84484; 85025; 85379; 93005; 99284; Q9967; A4216

== ENCOUNTER 2023-04-16 21:50 | Outpatient (CLI) | payer OTHER, MEDICAID, SELFPAY ==
[2023-04-16 22:02] VITALS: BMI 32.5
[2023-04-16 22:08] VITALS: TEMP 37.1
[2023-04-16 22:09] VITALS: BP 117/78; PULSE 81; PULSE 90; O2SAT 98
--- NOTE | 2023-04-17 12:33 | OB.TRI.NOTE ---
HPI - General General Date of Service: 04/16/23 HPI Narrative ESPERANZA AMES, is a 23 F who presents ctxs. Maternal Data Information DON Calculator Estimated Delivery Date Method Current WG Current Estimate 05/03/23 Manual 37w 5d PFSH PFS Medical History Anxiety Depression Fracture of fifth metatarsal bone of left foot Migraine Physical exam, pre-employment Home Medications fluoxetine 40 mg capsule 40 mg PO DAILY 02/09/23 [History Last Taken 04/05/23 08:15] Prena-Tab See Rx Instructions .Route .COMPLEX 03/18/23 [History Last Taken 04/05/23 08:15] ferrous sulfate 325 mg (65 mg iron) tablet (Feosol) 325 mg PO DAILY 03/18/23 [History Last Taken 04/05/23 08:15] Allergy/AdvReac Type Severity Reaction Status Date / Time No Known Allergies Allergy Verified 04/13/23 11:18 Surgical History H/O wisdom tooth extraction History of cholecystectomy Social History Smoking Status: Never smoker substance use type: does not use NST FHR Rate Baby A Baseline: 130 Variability:: Moderate Accelerations:: 15 x 15 Decelerations:: None Uterine Activity:: quiet Assessment & Plan (1) False labor: PLAN: Plan Reactive NST
== END 2023-04-16 22:47 | disposition home or self-care (01) ==
LOC: WPOUT 21:56 → WP 21:56
PROVIDERS: PCP Internal Medicine; Referring Provider Obstetrics & Gynecology; Visit Provider Obstetrics & Gynecology
DX: O47.1 False labor at or after 37 completed weeks of gestation (principal); O99.343 Other mental disorders complicating pregnancy, third trimester; F41.9 Anxiety disorder, unspecified; Z3A.37 37 weeks gestation of pregnancy; Z79.899 Other long term (current) drug therapy
CPT/HCPCS: 59025; 59050

== ENCOUNTER 2023-04-25 21:14 | Inpatient (IN) | payer OTHER, MEDICAID, SELFPAY ==
[2023-04-25] VITALS (48 sets, daily range): BP systolic 112–178; BP diastolic 59–101; PULSE 44–91; RESP 16; TEMP 36.2–36.8; O2SAT 16–99; BMI 31.7
[2023-04-25 21:11] LABS: ROM Internal Control Test YES-OK TO RESULT pt. (Internal QC)
[2023-04-25 21:14] LABS: ROM Patient Test POSITIVE (Negative); Record Kit Lot#, ROM+ K1409
[2023-04-25] MEDS: Labetalol (Prefilled) 20 MG/4 ML IV (21:36)
[2023-04-25] MEDS: Lactated Ringers 1,000 ML 50 ML IV (21:37)
--- NOTE | 2023-04-25 21:41 | PCM.HP.OB ---
HPI - General General Date of Admission: 04/25/23 Date of Service: 04/25/23 Chief Complaint: LOF HPI Narrative ESPERANZA AMES, is a 23 F at 38w6d presents with leaking of fluid and cramping. She reports leaking clear fluid throughout the day today with period like cramping. She denies vaginal bleeding. Good movement. She denies headache or vision changes. She denies upper abdominal pain, nausea, vomiting. She desires a primary section for delivery. Maternal Data Information DON Calculator Estimated Delivery Date Method Current WG Current Estimate 05/03/23 Manual 38w 6d PFSH PFSH Medical History Anxiety Depression Fracture of fifth metatarsal bone of left foot Migraine Physical exam, pre-employment Home Medications fluoxetine 40 mg capsule 40 mg PO DAILY 02/09/23 [History Last Taken 04/05/23 08:15] Prena-Tab See Rx Instructions .Route .COMPLEX 03/18/23 [History Last Taken 04/05/23 08:15] ferrous sulfate 325 mg (65 mg iron) tablet (Feosol) 325 mg PO DAILY 03/18/23 [History Last Taken 04/05/23 08:15] Allergy/AdvReac Type Severity Reaction Status Date / Time No Known Allergies Allergy Verified 04/13/23 11:18 Surgical History H/O wisdom tooth extraction History of cholecystectomy Social History Smoking Status: Never smoker substance use type: does not use NST FHR Rate Baby A Baseline: 155 Variability:: Moderate Accelerations:: 15 x 15 Decelerations:: None NST Reactive:: Yes FHR Category:: Category I Uterine Activity:: irregular ctx's Vital Signs Vital Signs Vital Signs: 04/25/23 20:51 04/25/23 20:51 04/25/23 20:50 Temperature Temperature Source Temporal Pulse Rate 68 Blood Pressure 169/101 H BP Systolic 169 BP Diastolic 101 Pulse Ox 04/25/23 20:51 04/25/23 20:51 04/25/23 20:51 Temperature Temperature Source Pulse Rate 61 Blood Pressure 159/93 H BP Systolic 159 BP Diastolic 93 Pulse Ox 98 04/25/23 20:50 04/25/23 20:57 04/25/23 20:57 Temperature 97.8 F Temperature Source Pulse Rate 44 L Blood Pressure BP Systolic BP Diastolic Pulse Ox 81 04/25/23 21:17 04/25/23 21:17 04/25/23 21:34 Temperature Temperature Source Pulse Rate 64 59 L Blood Pressure 178/95 H BP Systolic 178 BP Diastolic 95 Pulse Ox 04/25/23 21:34 04/25/23 21:39 04/25/23 21:39 Temperature Temperature Source Pulse Rate 62 Blood Pressure BP Systolic BP Diastolic Pulse Ox 99 96 Weight Weight: 190 lb 12.8 oz Body Mass Index (BMI) 31.7 Labs Labs Labs: Hct 35.1 % (37-47) L Hgb 11.8 g/dL (12.0-15.0) L Miscellaneous Test Assessment & Plan (1) 38 weeks gestation of : PLAN: Admit for routine pre operative care. ROM positive and patient is 3 cm dilated. Ancef and azithromycin ordered. Discussed risk, benefits, alternatives to a primary section versus labor with a vaginal delivery. Patient extensively counseled. She understands increased risk for bleeding and infection when a section is performed after she has been laboring. Patient requests to proceed with a primary section. She has been counseled regarding mode of delivery in the office as well, and has been scheduled for an elective primary section. (2) SROM (spontaneous rupture of membranes): PLAN: ROM positive (3) Cramping affecting , antepartum: PLAN: 3 cm dilated and comfortable appearing with irregular ctx's on toco (4) Elevated blood pressure affecting in third trimester, antepartum: PLAN: Several severe range blood pressures on admission. Patient denies symptoms of preeclampsia. Preeclampsia panel drawn. Magnesium started for seizure prophylaxis. Fluid restrictions and labetalol hypertensive protocol started. Discussed concern for severe preeclampsia with the patient, questions answered.
[2023-04-25] MEDS: Magnesium Sulfate 4gm/100mL 4 GM/100 ML IV.SOLN. IV (21:47)
[2023-04-25] MEDS: Acetaminophen 500 MG Tablet PO (21:55)
[2023-04-25] MEDS: Sodium Citrate/Citric Acid 30 ML UDC PO (21:56)
[2023-04-25] MEDS: 0.9% Saline Lock 10 ML Syringe IV (21:57)
[2023-04-25 22:10] LABS: Absolute Lymphocyte Count 1.89 X10^3/uL (0.83-4.51); Absolute Neutrophil Count 6.4 X10^3/uL (2.0-7.7); Basophil# 0.02 X10^3/uL; Basophil% 0.2 % (0-1); Eosinophil# 0.06 X10^3/uL; Eosinophils% 0.6 % (0-5); Hematocrit 34.1 % (37-47); Hemoglobin 11.6 g/dL (12.0-15.0); Lymphocyte # 1.89 X10^3/ul (0.83-4.51); Lymphocyte % 19.7 % (19-41); Mean Corpuscular Volume 88.1 fL (81-99); Mean Platelet Vol. 12.1 fl (6.2-12.0); Monocyte# 1.01 X10^3/uL; Monocyte% 10.5 % (0-10); NRBC Flagged by Analyzer 0 % (0-5); Neutrophil # 6.43 X10^3/uL (2.7-7.7); Neutrophil % 67.1 % (47-70); Platelet Count 171 K/mm3 (150-450); RBC Distribution Width CV 13.2 % (11.6-14.6); RBC Distribution Width SD 42.6 fl (35.1-43.9); Red Blood Count 3.87 M/mm3 (4.2-5.4); White Blood Count 9.6 K/mm3 (4.4-11.0)
[2023-04-25] MEDS: Ondansetron 4 MG/2 ML Vial IV (22:10)
[2023-04-25] MEDS: Magnesium Sulfate 20 GM/500 ML BAG IV (22:10)
[2023-04-25] MEDS: Labetalol 100 MG Tablet PO (22:19)
[2023-04-25 22:23] LABS: AST(SGOT) 20 U/L (15-37); Alanine Aminotransfer ALT/SGPT 17 U/L (13-56); Creatinine, Serum 0.62 mg/dL (0.55-1.02); EST Glomerular Filtration Rate 128 mL/min (>60); Est Glom Filt Rate - Afr Amer 154 mL/min (>60); Estimated Creatinine Clearance 126.99 ml/min; Uric Acid 3.2 mg/dL (2.6-6.0)
[2023-04-25 22:43] LABS: Protein, Urine (Random) 10.8 mg/dL (<11.9); Protein:Creat Ratio 565 mg/g CRE (0-200)
[2023-04-25 22:44] LABS: Syphilis Antibodies Non-reactive
[2023-04-26] VITALS (29 sets, daily range): BP systolic 99–124; BP diastolic 50–73; PULSE 71–100; RESP 15–17; TEMP 36.2–37.2; O2SAT 16–99
[2023-04-26] MEDS: Cefazolin 2 GM in 0.9% Normal Saline (100mL Bag) 100 ML IV (00:08)
[2023-04-26] MEDS: Azithromycin 500 MG in Dextrose 5%-Water (250mL Bag) 250 ML 250 MG IV (01:00)
--- NOTE | 2023-04-26 02:06 | PCM.OPRPT ---
Problems Associated Problem List Diagnoses (1) Pre-eclampsia: (2) SROM (spontaneous rupture of membranes): (3) 38 weeks gestation of : Report of Operation Date of Procedure: 04/26/23 Pre-Operative Diagnosis: 38 week gestation, SROM, pre eclampsia with severe features, category 2 heart rate tracing Post-Operative Diagnosis: As above Surgery/Procedure Performed:: PLTCS via pfannenstiel incision Description of Surgical Findings:: Male in cephalic presentation weighing 8+ pounds. Normal-appearing placenta with three-vessel cord. Normal-appearing uterus and bilateral adnexa. Surgeon: Jenny Sanches patent litigation associate: Eula PINZON Type of Anesthesia: Spinal Special Medications: None Specimen's removed: Placenta Drains: [place] Estimated Blood Loss (mL): 800 Fluids Replaced: 900 mL Description of Procedure: The patient was taken to the operating room where spinal anesthesia was induced. She was prepped and draped in the dorsal supine position with a leftward tilt. A Pfannenstiel skin incision was made using the scalpel and this was carried down to the underlying layer of fascia. The fascia was incised in the midline. The fascia was extended laterally using blunt dissection. The fascia was minimally dissected off of the rectus muscles in a cephalad direction using sharp dissection. The rectus muscles were the midline. The peritoneum was entered bluntly with good visualization of the bladder. The peritoneal incision was extended bluntly with lateral traction. A bladder blade was inserted. A low transverse incision was made on the uterus with a scalpel. The uterine incision was extended with cephalad and caudad traction. The head of the was delivered through the hysterotomy in a flexed position, followed by the shoulders and body of the infant without any force, traction, or delay. The cord was clamped and cut after slight delay and the was handed off to the waiting nursery staff. The placenta was removed with manual extraction. The uterus was cleared of all clot and debris. The uterus was exteriorized. The hysterotomy was closed with 1-0 Vicryl in a running locked fashion. Several additional [id number] sutures were placed for hemostasis. The uterus was placed back into the abdomen. [place] was placed over the lower uterine segment. Hemostasis was again noted. The subfascial space was noted to be hemostatic. The fascia was closed with strata fix in a running fashion. Subcutaneous space was irrigated and made hemostatic with the Bovie cautery. The subcutaneous space was reapproximated 3-0 Vicryl. The skin was closed with 4-0 Monocryl in a subcuticular fashion. A dressing was placed. Instrument, sponge, needle counts were correct. Patient was taken to the recovery in stable condition. Eula PINZON was present for the entire procedure and assisted with draping the patient, delivery of the , and closure. Grafts/Implants Used: None Complications None Admit VTE Documentation VTE Present on Admission: No VTE Mechan Device Prophylaxis: SCD's
[2023-04-26] MEDS: Oxytocin 15 Units/NS 250ml 15 UNITS/250 ML IV.SOLN 83 UNITS IV (02:50)
[2023-04-26] MEDS: Ketorolac 30 MG/ML Syringe IV ×4 (03:08→22:38)
[2023-04-26] MEDS: DiphenhydrAMINE 25 MG Capsule PO (03:33)
[2023-04-26] MEDS: Lactated Ringers 1,000 ML 100 ML IV (06:21)
[2023-04-26] MEDS: Acetaminophen 500 MG Tablet 1000 MG PO ×4 (06:22→23:29)
[2023-04-26] MEDS: Magnesium Sulfate 20 GM/500 ML BAG IV ×2 (07:22→16:06)
--- NOTE | 2023-04-26 12:04 | PCM.PN.OB ---
Objective Data Objective Data Vital Signs: Vital Signs Temp Pulse Resp BP Pulse Ox O2 Del Method 98.1 F 87 16 100/62 98 Room Air 04/26/23 11:41 04/26/23 11:41 04/26/23 11:41 04/26/23 11:41 04/26/23 11:41 04/26/23 11:41 Oxygen Delivery Method Room Air Weight: 190 lb 12.8 oz Body Mass Index (BMI) 31.7 Intake & Output: Intake and Output for Last 24 Hours 04/24/23 04/25/23 04/26/23 23:59 23:59 23:59 Intake Total 100 / 100 3082.50 / 3082.50 Output Total 1250 / 1250 3000 / 3000 Balance -1150 / -1150 82.50 / 82.50 Lab / Micro Data 04/25/23 21:40 04/25/23 21:40 Labs: Laboratory Results - last 24 hr 04/25/23 20:55: Vag Amniotic Fld Detect POSITIVE H 04/25/23 21:40: WBC 9.6, RBC 3.87 L, Hgb 11.6 L, Hct 34.1 L, MCV 88.1, MCH 30.0, MCHC 34.0, RDW Std Deviation 42.6, RDW Coeff of Clif 13.2, Plt Count 171, MPV 12.1 H, Immature Gran % (Auto) 1.900 H, Neut % (Auto) 67.1, Lymph % (Auto) 19.7, [place] % (Auto) 10.5 H, Eos % (Auto) 0.6, Baso % (Auto) 0.2, Absolute Neuts (auto) 6.4, Absolute Lymphs (auto) 1.89, Nucleated RBC % 0, Creatinine 0.62, Estim Creat Clear Calc 126.99, Est GFR (MDRD) Af Amer 154, Est GFR (MDRD) Non-Af 128, Uric Acid 3.2, AST 20, ALT 17, Syphilis Total Ab Non-reactive, Blood Type O POSITIVE, Antibody Screen NEGATIVE 04/25/23 22:00: U Random Total Protein 10.8, Urine Creatinine 19.10, Protein/Creatinin Ratio 565 H
[2023-04-26] MEDS: Senna/Docusate Sodium 1 Tablet PO (12:48)
[2023-04-26 13:05] LABS: Hematocrit 29.9 % (37-47); Mean Corp Hgb Conc 33.4 g/dL (32-36); Mean Corpuscular Hgb 29.6 pg (27.0-32.0); Mean Corpuscular Volume 88.5 fL (81-99); Mean Platelet Vol. 11.8 fl (6.2-12.0); Platelet Count 143 K/mm3 (150-450); RBC Distribution Width CV 13.2 % (11.6-14.6); RBC Distribution Width SD 42.7 fl (35.1-43.9); Red Blood Count 3.38 M/mm3 (4.2-5.4); White Blood Count 14.9 K/mm3 (4.4-11.0)
[2023-04-26] MEDS: 0.9% Saline Lock 10 ML Syringe IV ×2 (16:06→22:39)
--- NOTE | 2023-04-26 18:03 | PN.OBGYN_ITS ---
Subjective Subjective pain well controlled, average lochia, no N/V. Denies [place] or visual changes. Objective Data Objective Data Vital Signs: Vital Signs Temp Pulse Resp BP Pulse Ox O2 Del Method 98.1 F 97 16 106/73 96 Room Air 04/26/23 16:30 04/26/23 16:30 04/26/23 16:30 04/26/23 16:30 04/26/23 16:30 04/26/23 16:30 Oxygen Delivery Method Room Air Weight: 86.545 kg Body Mass Index (BMI) 31.7 Intake & Output: Intake and Output for Last 24 Hours 04/24/23 04/25/23 04/26/23 23:59 23:59 23:59 Intake Total 100 / 100 4939.17 / 4939.17 Output Total 1250 / 1250 3725 / 3725 Balance -1150 / -1150 1214.17 / 1214.17 Lab / Micro Data 04/26/23 12:45 04/25/23 21:40 Labs: Laboratory Results - last 24 hr 04/25/23 20:55: Vag Amniotic Fld Detect POSITIVE H 04/25/23 21:40: WBC 9.6, RBC 3.87 L, Hgb 11.6 L, Hct 34.1 L, MCV 88.1, MCH 30.0, MCHC 34.0, RDW Std Deviation 42.6, RDW Coeff of Clif 13.2, Plt Count 171, MPV 12.1 H, Immature Gran % (Auto) 1.900 H, Neut % (Auto) 67.1, Lymph % (Auto) 19.7, [place] % (Auto) 10.5 H, Eos % (Auto) 0.6, Baso % (Auto) 0.2, Absolute Neuts (auto) 6.4, Absolute Lymphs (auto) 1.89, Nucleated RBC % 0, Creatinine 0.62, Estim Creat Clear Calc 126.99, Est GFR (MDRD) Af Amer 154, Est GFR (MDRD) Non-Af 128, Uric Acid 3.2, AST 20, ALT 17, Syphilis Total Ab Non-reactive, Blood Type O POSITIVE, Antibody Screen NEGATIVE 04/25/23 22:00: U Random Total Protein 10.8, Urine Creatinine 19.10, Protein/Creatinin Ratio 565 H 04/26/23 12:45: WBC 14.9 H, RBC 3.38 L, Hgb 10.0 L, Hct 29.9 L, MCV 88.5, MCH 2 9.6, MCHC 33.4, RDW Std Deviation 42.7, RDW Coeff of Clif 13.2, Plt Count 143 L, MPV 11.8 Physical Exam Narrative 3+ DTRs, one beat of clonus, 2+ edema and symmetrical Const alert General Appearance: cooperative GI GI Narrative: soft, moderate distention, fundus firm, appropriately tender. Abdominal bandage clean dry and intact Assessment & Plan (1) Pre-eclampsia: PLAN: POD#0 s/p primary c/s w/ severe preeclampsia BPs stable off of labetalol monitor for now mag for 24 hrs after delivery doing well
--- NOTE | 2023-04-26 23:19 | NURSING ---
RN notes pt drank 150ml for 2200 hour rather than 100 ml. RN placed water away from bedside and will control amount of water given to pt.
[2023-04-27 00:35] VITALS: BP 112/64; PULSE 91; RESP 15; TEMP 37; O2SAT 94
[2023-04-27] MEDS: 0.9% Saline Lock 10 ML Syringe IV (00:51)
[2023-04-27 03:45] VITALS: BP 112/64; PULSE 89; RESP 18; TEMP 37; O2SAT 96
[2023-04-27] MEDS: Ibuprofen 600 MG Tablet PO ×4 (04:59→23:56)
[2023-04-27] MEDS: Acetaminophen 500 MG Tablet 1000 MG PO ×3 (05:50→20:10)
[2023-04-27 06:03] LABS: Hematocrit 28.9 % (37-47); Hemoglobin 9.6 g/dL (12.0-15.0); Mean Corp Hgb Conc 33.2 g/dL (32-36); Mean Corpuscular Hgb 29.7 pg (27.0-32.0); Mean Corpuscular Volume 89.5 fL (81-99); Mean Platelet Vol. 11.5 fl (6.2-12.0); Platelet Count 148 K/mm3 (150-450); RBC Distribution Width CV 13.3 % (11.6-14.6); RBC Distribution Width SD 43.8 fl (35.1-43.9); Red Blood Count 3.23 M/mm3 (4.2-5.4); White Blood Count 16.6 K/mm3 (4.4-11.0)
[2023-04-27 08:06] LABS: ALB/GLOB Ratio 0.6 RATIO (0.9-2.4); AST(SGOT) 18 U/L (15-37); Alanine Aminotransfer ALT/SGPT 13 U/L (13-56); Albumin, Serum 1.9 g/dL (3.2-5.0); Alkaline Phosphatase 87 U/L (45-117); Anion Gap 5 (5-15); BUN 6 mg/dL (7-18); BUN/Creat Ratio 10.1 RATIO (10-20); Chloride 107 mmol/L (98-107); EST Glomerular Filtration Rate 133 mL/min (>60); Est Glom Filt Rate - Afr Amer 160 mL/min (>60); Estimated Creatinine Clearance 131.22 ml/min; Globulin 3.3 g/dL (2.2-4.2); Glucose 85 mg/dL (74-106); Potassium 2.8 mmol/L (3.5-5.1); Protein, Total 5.2 g/dL (6.4-8.2); Sodium Level 138 mmol/L (136-145)
[2023-04-27 08:09] VITALS: BP 118/55; PULSE 86; RESP 16; TEMP 36.6
--- NOTE | 2023-04-27 09:23 | CASEMGMT ---
Social Work Assessment Labor and Delivery Unit Patient Address:[address] [place] [address] [address] [address] Phone number: [phone] Date of Referral: 04/26/23 Time of Referral:? [id number] Referred By: Bedside RN, charge nurse Date of Intervention: ??04/26/23 Time of Intervention:? 944 Reason for Referral:? history of depression and anxiety Sw completed chart review and acknowledges social work consult due to maternal history of anxiety and depression. Sw presented to bedside, introduced self to mother of baby (AMY- Dayami) and father of baby (FOB- Yobany). Sw explained reason for social work consult and completed psychosocial assessment. History obtained from: medical records, MOB and FOB Household composition: Parents state that currently residing in the home is AMY, MARGARET and their dogs, and now baby boy. Parents report their housing is safe. No housing concerns at this time. Patient's parent/guardian status:? ?Parents report that they are high school sweethearts, they have been together for 6 years. Parents appeared to have good relationship and can openly communicate with each other. NO concerns of domestic violence or intimate partner violence. Medical History: ?AMY is 1, para 0- now 1 following delivery . AMY received routine care with [facility] routinely during . AMY presented to hospital and delivered baby via requested at 38 weeks gestation. Baby boy, named Geovanni, was born weighing 8lb 9oz and his apgars were 8 and 8 at one and five minutes of life. AMY states that she is breast feeding and it is going well. Educational Status:? Both parents graduated from high school, no college education for either parent. Financial Status: Both parents are gainfully employed outside of the home. AMY works fro [employer]. MOB states that she is able to take 12 weeks off for maternity leave. FOOlman works for [employer] and is able to take a week off of work. Supplies:?? Parents report they have obtained all necessary baby items including: car seat, safe sleep space, clothes, diapers, wipes and a breast pump. Childcare/Caregiver(s):?Parents report that when they have both returned to work maternal great grandma will be able to watch baby Geovanni. Transportation:?? Both parents have valid drivers license and reliable means of transportation. No transportation barriers at this time. Programs/Agencies Involved: ?AMY has a secondary insurance through [employer] and states that she will be adding baby to that insurance. ?? Children Services/Legal Issues:??? No prior involvement, no issues or concerns warranting a referral at this time. Behavioral Health Issues: ??Mental Health History:??FOB denies mental health history/ diagnoses. MOB states that she has been diagnosed with depression and anxiety, however anxiety is what she struggles with the most. MOB states that her OBGYN prescribed her prozac and they increased the dosage during as a preventative measure. MOB states that she can tell a difference with the medication and plans to continue to take it. Substance Use History:?MOB denies substance use prior to and during . ? Family History:?MOB denies any mental health history and substance use history on either side of the family. ? Drug Screens: No urine screens observed in chart review. ? Family/Social Stressors:? Parents deny stressors at this time. Support Systems: MOB states that both sets of grandparents are supportive. Depression/Shaken Baby/Safe Sleeping:? Glory educated parents on signs and symptoms of baby blues and depression/ anxiety. Sw explained that due to MOB mental health history she may be more susceptible to eperiencing one or the other. Parents expressed understanding. Sw provided literature for parents to review. Sw educated parents on shaken baby prevention and ABCs of safe sleep. Parents expressed understanding. ASSESSMENT:? MOB admitted following labor and deliver of baby boy. Parents both at bedside and receptive to meeting with social work. Parents have been together for 6 years, both have steady and reliable jobs/ income. Parents have obtained all necessary baby items for baby. Parents have good supports in their lives. No needs or concerns at this time. PLAN:? MOB and baby to be discharged when medically ready. ?No other services requested or indicated. Krista Delgadillo, BAND CUTTING MACHINE OPERATOR, CLINICAL GENETICIST
--- NOTE | 2023-04-27 10:38 | PCM.PN.OB ---
Subjective Subjective Denies complaints. Objective Data Objective Data Vital Signs: Vital Signs Temp Pulse Resp BP Pulse Ox O2 Del Method 97.9 F 86 16 118/55 L 96 Room Air 04/27/23 08:09 04/27/23 08:09 04/27/23 08:09 04/27/23 08:09 04/27/23 03:45 04/27/23 03:45 Oxygen Delivery Method Room Air Weight: 190 lb 12.8 oz Body Mass Index (BMI) 31.7 Intake & Output: Intake and Output for Last 24 Hours 04/25/23 04/26/23 04/27/23 23:59 23:59 23:59 Intake Total 100 / 100 5724.17 / 5724.17 536.67 / 536.67 Output Total 1250 / 1250 5225 / 5225 1640 / 1640 Balance -1150 / -1150 499.17 / 499.17 -1103.33 / -1103.33 Lab / Micro Data 04/27/23 05:57 04/27/23 05:57 Labs: Laboratory Results - last 24 hr 04/26/23 12:45: WBC 14.9 H, RBC 3.38 L, Hgb 10.0 L, Hct 29.9 L, MCV 88.5, MCH 29.6, MCHC 33.4, RDW Std Deviation 42.7, RDW Coeff of Clif 13.2, Plt Count 143 L, MPV 11.8 04/27/23 05:57: WBC 16.6 H, RBC 3.23 L, Hgb 9.6 L, Hct 28.9 L, MCV 89.5, MCH 29.7, MCHC 33.2, RDW Std Deviation 43.8, RDW Coeff of Clif 13.3, Plt Count 148 L, MPV 11.5, Sodium 138, Potassium 2.8 L, Chloride 107, Carbon Dioxide 26.0, Anion Gap 5, BUN 6 L, Creatinine 0.60, Estim Creat Clear Calc 131.22, Est GFR (MDRD) Af Amer 160, Est GFR (MDRD) Non-Af 133, BUN/Creatinine Ratio 10.1, Glucose 85, Calcium 7.0 L, Total Bilirubin 0.20, AST 18, ALT 13, Alkaline Phosphatase 87, Total Protein 5.2 L, Albumin 1.9 L, Globulin 3.3, Albumin/Globulin Ratio 0.6 L Physical Exam Const alert, oriented x3 and no apparent distress HEENT normocephalic GI soft to palpation, non-tender and non-distended GI Narrative: fundus firm, mid & below umbilicus Incision - bandage c/d/i Extremity normal to inspection and no calf tenderness Assessment & Plan (1) Pre-eclampsia: QUALIFIERS: Trimester: third trimester Qualified Code(s): O14.93 - Unspecified pre-eclampsia, third trimester COMMENT: POD#1 (2) Delivery by section: PLAN: Plan S/p 24 hours magnesium sulfate BP's normal at this time & labetalol held due to low BP's Routine care
[2023-04-27] MEDS: FLUoxetine 20 MG Capsule 40 MG PO (11:32)
[2023-04-27] MEDS: Senna/Docusate Sodium 1 Tablet PO (11:32)
[2023-04-27 14:30] VITALS: BP 117/51; PULSE 74; RESP 16; TEMP 36.6
[2023-04-27 20:00] VITALS: BP 123/76; PULSE 76; RESP 16; TEMP 36.2; O2SAT 97
[2023-04-28] MEDS: Acetaminophen 500 MG Tablet 1000 MG PO ×2 (02:33→09:41)
[2023-04-28 02:34] VITALS: BP 132/77; PULSE 60; RESP 16; TEMP 36.1; O2SAT 96
[2023-04-28] MEDS: Ibuprofen 600 MG Tablet PO (05:53)
--- NOTE | 2023-04-28 08:23 | DS.PCM_ITS ---
Providers Date of Admission: 04/25/23 Primary Care Physician: Dr. Maria E Jacobs MD Reason For Visit: Diagnosis Discharge Diagnosis (1) Pre-eclampsia: Status: Acute Code(s): O14.90 - Unspecified pre-eclampsia, unspecified trimester Qualifiers: Trimester: third trimester Qualified Code(s): O14.93 - Unspecified pre- eclampsia, third trimester (2) Delivery by section: Status: Acute Medications at Discharge Home Medications fluoxetine 40 mg capsule 40 mg PO DAILY 02/09/23 Prena-Tab See Rx Instructions .Route .COMPLEX 03/18/23 ferrous sulfate 325 mg (65 mg iron) tablet (Feosol) 325 mg PO DAILY 03/18/23 acetaminophen 500 mg tablet 1,000 mg (2 x 500 mg) PO Q6H #0 tabs 04/28/23 ibuprofen 600 mg tablet 600 mg PO Q6H #0 tabs 04/28/23 Hospital Course Operations section Summary of Care Provided Minutes Spent on Discharge: 20 Hospital Course: Patient had section. Hospital course uneventful. Physical Exam Narrative Dressing is dry and intact Const alert and no apparent distress General Appearance: cooperative and comfortable Exam Limitations: no limitations HEENT normocephalic Eyes General Eye: normal appearance of both eyes Neck full ROM General: normal visual inspection Chest Chest: symmetrical chest wall rise Resp normal respiratory effort and normal air movement Effort and Inspection: symmetric chest movement Auscultation: clear to auscultation bilaterally Cardio regular rate and regular rhythm GI normal to inspection, nondistended, normoactive bowel sounds Back/Spine normal ROM Extremity full ROM and no calf tenderness General Extremity: normal exam except as noted Skin no rashes or lesions noted Neuro CN's II-XII intact bilaterally Psych mental status grossly normal Weight / BMI Weight Weight: 190 lb 12.8 oz Body Mass Index (BMI) 31.7 ABG / Lab / Microbiology Data 04/27/23 05:57 04/27/23 05:57 D/C Instructions Discharge Diet: No restrictions Discharge Activity: May Drive (2 weeks) and May Shower May resume sexual activity in: 6-8 weeks Weight Bearing Status: Weight bearing as tolerated Call your doctor if your incision/area has: Continuous Slow Oozing, Sudden Increased Bleeding, Increased Pain/ Swelling, Increased Redness, Foul Smelling Discharge and Swelling at the incision site Call your doctor if you observe: Fever of 101 or Higher, Numbness or Tingling, Using more than 1 pad per hour, Shortness of breath, Dizziness, Swelling in the ankles, Chest pain, Calf discomfort and Uncontrolled pain Suture Line Care: Avoid Pulling/Pushing Change Dressing in: leave in place till F/U Remove Dressing in: leave until fall off Please Follow Up With: Ely Mcbride CNM When: Early next week for BP check and incision check Meaningful Use Info Meaningful Use Diagnoses (Choose all that apply): None applicable Discharge Plan Admission Admit Date/Time: 04/25/23 21:14 Primary Reason for Your Visit: Labor and Delivery Attending Provider: Jenny Sanches Primary Care Provider: Maria E Jacobs Discharge Orders/Prescriptions Prescriptions: New acetaminophen 500 mg Tablet 1,000 mg PO Q6H Qty: 0 0RF ibuprofen 600 mg Tablet 600 mg PO Q6H Qty: 0 0RF Continued fluoxetine 40 mg capsule 40 mg PO DAILY Patient Comments: TAKE 1 CAPSULE BY MOUTH ONCE DAILY ferrous sulfate [Feosol] 325 mg (65 mg iron) tablet 325 mg PO DAILY Prena-Tab See Rx Instructions .ROUTE .COMPLEX Rx Instructions: daily for prenancy Referrals / Follow Up: Ely Mcbride CNM [Med Staff - Adv Practice Prof] - Maria E Jacobs MD [Primary Care Provider] - Disposition Disposition (needs filled in before D/C Order can be placed): Home, Self Care
[2023-04-28 08:28] VITALS: BP 108/80; PULSE 75; RESP 16; TEMP 36.9; O2SAT 98
[2023-04-28] MEDS: FLUoxetine 20 MG Capsule 40 MG PO (10:18)
== END 2023-04-28 10:45 | disposition home or self-care (01) | DRG 788 ==
LOC: WPOUT 21:18 → WP 21:18
PROVIDERS: Obstetrics & Gynecology; Admitting Provider Obstetrics & Gynecology; PCP Internal Medicine; Visit Provider Obstetrics & Gynecology
DX: O14.10 Severe pre-eclampsia, unspecified trimester (principal); Z37.0 Single live birth; Z3A.38 38 weeks gestation of pregnancy
CPT/HCPCS: 59025; 59050; 80053; 82565; 82570; 84112; 84156; 84450; 84460; 84550; 85025; 85027; 86780; 86850; 86900; 86901; 99221; J7120; A4216; G0378; J2405

== ENCOUNTER 2023-04-30 01:10 | Emergency (ER) | payer OTHER, MEDICAID, SELFPAY ==
[2023-04-30 01:14] VITALS: BP 163/101; PULSE 54; RESP 14; TEMP 36.5; O2SAT 99; BMI 31.2
--- NOTE | 2023-04-30 01:56 | EKG12_ITS ---
Test Reason : CP Blood Pressure : / mmHG Vent. Rate : 052 BPM Atrial Rate : 052 BPM P-R Int : 154 ms QRS Dur : 086 ms QT Int : 462 ms P-R-T Axes : 043 082 044 degrees QTc Int : 429 ms Sinus bradycardia Otherwise normal ECG Confirmed by AMOR ADAM, BEN ([id number]), assistant production editor ENRIQUE ALONSO ([id number]) on 05/04/2023 7:59:54 AM Referred By: Confirmed By:BEN CHINCHILLA MD
--- NOTE | 2023-04-30 01:57 | EDS_ITS ---
HPI History of Present Illness Chief Complaint: Chest Pain Informant: patient and PCP (OB) Narrative Narrative: Patient is about 5 days from a for severe preeclampsia. She has been following with her bumper machine operator Dr. Sanches, her blood pressure persistently was a little elevated this past day or so in the office in the 140s, so she was started on labetalol and then. She was having some substernal chest discomfort that feels like pressure earlier in the day this past day, it sort of went away and then came back this evening and has been persistent, she has been anxious about her blood pressure being elevated and it was in the 160s at home, she discussed with her bumper machine operator who is referring her to the emergency department for further evaluation regarding all of this. Patient states she has had edema in her legs for the last 5 days or so that is a little worse than it was before she delivered, her OB knows about that, she denies any headaches, blurry vision, fevers, dyspnea, or palpitations although she has had some palpitations in the past. Other than rapid palpitations several weeks ago no other known cardiac problems, she states at that point she was ruled out for pulmonary embolus and has never been diagnosed with 1 of those. She denies any calf pain or asymmetric edema in her legs. [facility] Medical History Anxiety Depression Fracture of fifth metatarsal bone of left foot Migraine Physical exam, pre-employment Home Medications fluoxetine 40 mg capsule 40 mg PO DAILY 02/09/23 [History Last Taken 04/05/23 08:15] Prena-Tab See Rx Instructions .Route .COMPLEX 03/18/23 [History Last Taken 04/05/23 08:15] ferrous sulfate 325 mg (65 mg iron) tablet (Feosol) 325 mg PO DAILY 03/18/23 [History Last Taken 04/05/23 08:15] acetaminophen 500 mg tablet 1,000 mg (2 x 500 mg) PO Q6H #0 tabs 04/28/23 [Rx Last Taken Unknown] ibuprofen 600 mg tablet 600 mg PO Q6H #0 tabs 04/28/23 [Rx Last Taken Unknown] labetalol 100 mg tablet 100 mg PO BID 04/30/23 [History Last Taken Unknown] Allergy/AdvReac Type Severity Reaction Status Date / Time No Known Allergies Allergy Verified 04/30/23 01:19 Surgical History H/O wisdom tooth extraction History of cholecystectomy Social History Smoking Status: Never smoker substance use type: does not use ROS ROS ED Constitutional Constitutional ED: Denies chills or fever(s) Eyes Eyes: Denies change in vision or diplopia ENT ENT ED: Denies rhinorrhea or sore throat Cardiovascular Cardiovascular: Reports chest pain and leg edema; Denies palpitations Respiratory/Chest Respiratory/Chest: Denies cough or dyspnea Gastrointestinal Gastrointestinal: Denies abdominal pain, diarrhea, nausea or vomiting Genitourinary Genitourinary ED: Denies dysuria or hematuria Musculoskeletal Musculoskeletal: Denies back pain or neck pain Integumentary Denies abscess or rash Neurologic Neurologic: Denies headache(s), paresthesias or weakness Psychiatric Psychiatric: Denies anxiety or suicidal thoughts EXAM Physical Exam Const Vital Signs: 04/30/23 01:14 04/30/23 01:18 04/30/23 03:10 Temperature 97.7 F L Temperature Source Temporal Pulse Rate 54 L 59 L Respiratory Rate 14 16 Respiratory Pattern Normal Blood Pressure 163/101 H 157/98 H Blood Pressure Mean 121 117 Pulse Ox 99 98 Oxygen Delivery Method Room Air Positive well nourished and well developed General Appearance ED: well developed and NAD HEENT Reports moist mucous membranes normocephalic and atraumatic Eyes PERRL and EOMs intact bilaterally Neck full ROM and supple Chest Wall inspection of chest normal and palpation of chest normal Resp normal respiratory effort and clear to auscultation bilaterally Cardio regular rate, regular rhythm and no murmurs Rate: Negative for tachycardic GI non-tender and non-distended Auscultation: normoactive bowel sounds Palpation: soft Back/Spine no CVA tenderness General Back: other FROM Extremity normal to inspection General Extremety ED: Yes edema; Negative for pulses abnormal or tenderness General Extremity: edema bilateral lower extremity Details: moderate; Negative for pulses abnormal Neuro oriented x3, CN's II-XII intact bilaterally and no sensory deficits noted Sensorium / Orientation: awake and alert Motor Exam: strength 5/5 throughout Skin no rashes or lesions noted and no wounds MDM MDM MDM Narrative Medical decision making narrative: Patient's EKG is normal and her heart rate is resting in the 50s. Given the symptoms I do not think this is a pulmonary embolus, certainly that was considered as a possibility since she was just recently , but I do not think the symptoms are compatible with pulmonary embolism largely, and with her lack of anything close to tachycardia, I think we can safely avoid CT angiography. She also does not appear to have decompensated CHF/cardiomyopathy since she does not sound wet, chest x-ray shows no sign of pulmonary edema or cardiomegaly, and she is not hypoxic or dyspneic. Additionally, she states that when she lies down flat the symptoms seem to be more prominent and when she is upright and doing activities, she notices the symptoms last. This is all consistent with reflux, and she has a history of reflux during her . She has not tried anything for the discomfort yet, so while working her up we gave her a GI cocktail. This made a significant improvement in her discomfort and she feels better. We watched her blood pressure carefully. Initially 163/101, on repeat 171/101. She is asymptomatic with this. Discussed with Dr. Sanches, who advises giving her some antihypertensive to get her pressure down below 160 preferably. We gave her hydralazine 10 mg IV, and shortly thereafter her pressure is already started to come down, 157/98. She is to call the OB office in the morning for further instructions and double her morning dose of labetalol but otherwise continue it as prescribed. Patient is comfortable with that plan. I will put her on a PPI for now. Lab Data Attestation: I reviewed the patient's lab results. Labs: Laboratory Results - last 24 hr 04/30/23 01:15 WBC 8.1 RBC 3.05 L Hgb 8.8 L Hct 27.6 L MCV 90.5 MCH 28.9 MCHC 31.9 L RDW Std Deviation 44.5 H RDW Coeff of Clif 13.5 Plt Count 197 MPV 11.2 Immature Gran % (Auto) 2.000 H Neut % (Auto) 73.1 H Lymph % (Auto) 15.6 L [place] % (Auto) 7.2 Eos % (Auto) 1.6 Baso % (Auto) 0.5 Absolute Neuts (auto) 5.9 Absolute Lymphs (auto) 1.26 Nucleated RBC % 0 Sodium 140 Potassium 3.2 L Chloride 111 H Carbon Dioxide 23.0 Anion Gap 6 BUN 9 Creatinine 0.48 L Estim Creat Clear Calc 157.40 Est GFR (MDRD) Af Amer 204 Est GFR (MDRD) Non-Af 168 BUN/Creatinine Ratio 18.6 Glucose 90 Calcium 8.4 L Total Bilirubin 0.30 AST 23 ALT 24 Alkaline Phosphatase 100 Troponin I High Sens 8 Total Protein 6.0 L Albumin 2.3 L Globulin 3.7 Albumin/Globulin Ratio 0.6 L Radiography Chest X-Ray - ED: 2 View, Read by ED Physician and No Infiltrates Diagnostic Testing: Clinical Impression(s) from Imaging Studies Chest X-Ray 04/30/23 01:58 IMPRESSION: Small bilateral pleural effusions similar to recent CT chest from 04/13/2023. No infiltrates. Electronically Signed: Rosa Rm MD at 2:23 EDT Reading Location ID and State: [address] [place] [address] Tel , Service support , Rhythm Strip Rhythm Strip: Sinus Rhythm Rate: 54 Ectopy: None EKG Initial EKG: Attestation: I personally reviewed and interpreted this EKG as follows: Interpretation: Sinus Rhythm and No Acute Injury Pattern Comments: Normal EKG rate 52 Management Discussion w/another healthcare provider: Grease Refining Supervisor (OB) Discharge Plan Triage Chief Complaint: Chest Pain ED Provider: Ludwin Mccabe Dx/Rx/DC Orders Clinical Impression: Chest pain due to GERD, hypertension Instructions: ED Chest Pain, Noncardiac, ED Hypertension, To Be Confirmed Prescriptions: No Action fluoxetine 40 mg capsule 40 mg PO DAILY Patient Comments: TAKE 1 CAPSULE BY MOUTH ONCE DAILY ferrous sulfate [Feosol] 325 mg (65 mg iron) tablet 325 mg PO DAILY Prena-Tab See Rx Instructions .ROUTE .COMPLEX Rx Instructions: daily for prenancy acetaminophen 500 mg Tablet 1,000 mg PO Q6H Qty: 0 0RF ibuprofen 600 mg Tablet 600 mg PO Q6H Qty: 0 0RF labetalol 100 mg tablet 100 mg PO BID Primary Care Provider: Maria E Jacobs Referrals: Maria E Jacobs MD [Primary Care Provider] - Jenny Sanches DO [Med Staff - Active Staff] - As soon as possible (call this AM after 8am for further follow up directions) Activity Restrictions/Additional Instructions: Double this morning's dose of labetalol to 200 mg, then continue taking as prescribed afterwards. Disposition Disposition: Home, Self Care
--- NOTE | 2023-04-30 01:58 | RAD_ITS ---
INDICATION: cp C/O CP 5 DAYS FROM A FOR SEVERE PREECLAMPSIA EXAMINATION/TECHNIQUE: X-RAY - XR Chest 2 Views COMPARISON: Chest x-ray 04/16/2021 CT chest 04/13/2023. FINDINGS: LINES/DEVICES: None. LUNGS: No consolidation. Small bilateral pleural effusions, similar to the recent CT chest. No pneumothorax. MEDIASTINUM: Unremarkable. CARDIAC SILHOUETTE: Not enlarged. BONES AND SOFT TISSUES: No acute abnormalities. RAD/Chest PA and Lateral IMPRESSION: Small bilateral pleural effusions similar to recent CT chest from 04/13/2023. No infiltrates. Electronically Signed: Rosa Rm MD at 2:23 EDT ,
[2023-04-30 02:03] LABS: Absolute Lymphocyte Count 1.26 X10^3/uL (0.83-4.51); Absolute Neutrophil Count 5.9 X10^3/uL (2.0-7.7); Basophil# 0.04 X10^3/uL; Basophil% 0.5 % (0-1); Eosinophil# 0.13 X10^3/uL; Eosinophils% 1.6 % (0-5); Hematocrit 27.6 % (37-47); Hemoglobin 8.8 g/dL (12.0-15.0); Lymphocyte # 1.26 X10^3/ul (0.83-4.51); Lymphocyte % 15.6 % (19-41); Mean Corp Hgb Conc 31.9 g/dL (32-36); Mean Corpuscular Hgb 28.9 pg (27.0-32.0); Mean Corpuscular Volume 90.5 fL (81-99); Mean Platelet Vol. 11.2 fl (6.2-12.0); Monocyte# 0.58 X10^3/uL; Monocyte% 7.2 % (0-10); NRBC Flagged by Analyzer 0 % (0-5); Neutrophil # 5.93 X10^3/uL (2.7-7.7); Neutrophil % 73.1 % (47-70); Platelet Count 197 K/mm3 (150-450); RBC Distribution Width CV 13.5 % (11.6-14.6); RBC Distribution Width SD 44.5 fl (35.1-43.9); Red Blood Count 3.05 M/mm3 (4.2-5.4); White Blood Count 8.1 K/mm3 (4.4-11.0)
[2023-04-30] MEDS: Mag Hydrox/Al Hydrox/Simeth 30 ML UDC PO (02:09)
[2023-04-30 02:18] LABS: ALB/GLOB Ratio 0.6 RATIO (0.9-2.4); AST(SGOT) 23 U/L (15-37); Alanine Aminotransfer ALT/SGPT 24 U/L (13-56); Albumin, Serum 2.3 g/dL (3.2-5.0); Alkaline Phosphatase 100 U/L (45-117); Anion Gap 6 (5-15); BUN 9 mg/dL (7-18); BUN/Creat Ratio 18.6 RATIO (10-20); Calcium,Total 8.4 mg/dL (8.5-10.1); Chloride 111 mmol/L (98-107); Creatinine, Serum 0.48 mg/dL (0.55-1.02); EST Glomerular Filtration Rate 168 mL/min (>60); Est Glom Filt Rate - Afr Amer 204 mL/min (>60); Globulin 3.7 g/dL (2.2-4.2); Glucose 90 mg/dL (74-106); Potassium 3.2 mmol/L (3.5-5.1); Sodium Level 140 mmol/L (136-145); Troponin-I HS 8 pg/mL (3.0-54.0)
[2023-04-30 03:10] VITALS: BP 157/98; PULSE 59; RESP 16; O2SAT 98
[2023-04-30] MEDS: hydrALAZINE 20 MG/ML Vial 10 MG IV (03:24)
[2023-04-30 03:48] VITALS: BP 144/89; PULSE 57; RESP 18; O2SAT 99
== END 2023-04-30 03:49 | disposition home or self-care (01) ==
PROVIDERS: Emergency Provider Emergency Medicine; PCP Internal Medicine; Visit Provider Emergency Medicine
DX: O99.893 Other specified diseases and conditions complicating puerperium (principal); O99.63 Diseases of the digestive system complicating the puerperium; O16.5 Unspecified maternal hypertension, complicating the puerperium; K21.9 Gastro-esophageal reflux disease without esophagitis; R07.9 Chest pain, unspecified; Z79.899 Other long term (current) drug therapy
CPT/HCPCS: 71046; 80053; 84484; 85025; 93005; 96374; 99285; A4216

== ENCOUNTER 2024-04-18 16:05 | Emergency (ER) | payer OTHER, MEDICAID, SELFPAY ==
[2024-04-18 16:06] VITALS: BP 124/91; PULSE 96; RESP 18; TEMP 36.3; O2SAT 98; BMI 28.8
[2024-04-18 17:25] LABS: Absolute Lymphocyte Count 2.07 X10^3/uL (0.83-4.51); Absolute Neutrophil Count 4.1 X10^3/uL (2.0-7.7); Basophil# 0.02 X10^3/uL; Basophil% 0.3 % (0-1); Eosinophil# 0.07 X10^3/uL; Hematocrit 38.7 % (37-47); Hemoglobin 12.7 g/dL (12.0-15.0); Lymphocyte # 2.07 X10^3/ul (0.83-4.51); Lymphocyte % 29.5 % (19-41); Mean Corp Hgb Conc 32.8 g/dL (32-36); Mean Corpuscular Volume 85.4 fL (81-99); Mean Platelet Vol. 10.3 fl (6.2-12.0); Monocyte# 0.72 X10^3/uL; Monocyte% 10.3 % (0-10); NRBC Flagged by Analyzer 0 % (0-5); Neutrophil # 4.11 X10^3/uL (2.7-7.7); Neutrophil % 58.5 % (47-70); Platelet Count 253 K/mm3 (150-450); RBC Distribution Width CV 13.2 % (11.6-14.6); Red Blood Count 4.53 M/mm3 (4.2-5.4)
[2024-04-18 17:29] LABS: Bacteria 0 SEEN /hpf (None Seen); Mucous, Urine 0 SEEN /hpf (<or=2+); Red Blood Cells-Urine 0 SEEN /hpf (0-5)
[2024-04-18 17:31] LABS: Color, Urine Yellow (Yellow); Glucose, Dipstick Normal (Normal); Ketone-Dipstick Negative (Negative); Leukocyte Esterase-Dipstick 25 /ul (Negative); Nitrite-Dipstick Negative (Negative); Occult Blood-Urine Negative /ul (Negative); Protein-Dipstick 15 mg/dl (Negative); Specific Gravity, Urine 1.015 (1.002-1.030); Urine Bilirubin Dipstick Negative (Negative); Urine Clarity Sl. Cloudy (Clear); Urine Urobilinogen Normal (Normal); Urine pH 6.5 (5.0 - 8.0)
[2024-04-18 17:37] LABS: Internal QC Validated? YES +Cl - CLEAR BKGD; Pregnancy, Serum, hCG Quali. NEGATIVE Negative; Record Kit Lot#, Serum Preg. 772476
[2024-04-18 17:43] LABS: ALB/GLOB Ratio 0.9 RATIO (0.9-2.4); AST(SGOT) 16 U/L (15-37); Alanine Aminotransfer ALT/SGPT 19 U/L (13-56); Albumin, Serum 3.6 g/dL (3.2-5.0); Alkaline Phosphatase 87 U/L (45-117); Anion Gap 5 (5-15); BUN 9 mg/dL (7-18); BUN/Creat Ratio 14.5 RATIO (10-20); Calcium,Total 9.6 mg/dL (8.5-10.1); Chloride 104 mmol/L (98-107); Creatinine, Serum 0.62 mg/dL (0.55-1.02); EST Glomerular Filtration Rate 126 mL/min (>60); Est Glom Filt Rate - Afr Amer 152 mL/min (>60); Globulin 3.9 g/dL (2.2-4.2); Glucose 99 mg/dL (74-106); Potassium 3.6 mmol/L (3.5-5.1); Protein, Total 7.5 g/dL (6.4-8.2); Sodium Level 138 mmol/L (136-145)
[2024-04-18 17:47] LABS: Amorphous Sediment 1+ URATE; Squamous Epithelial Cells - UA 5-10 SEEN /hpf (5-10); White Blood Cells 0-5 SEEN /hpf (0-5)
[2024-04-18 18:06] VITALS: PULSE 85; RESP 17; O2SAT 98
--- NOTE | 2024-04-18 19:10 | CT_ITS ---
STUDY: CT ABDOMEN AND PELVIS WITH CONTRAST REASON FOR EXAM: Female, 24 years old. RLQ abdominal pain RADIATION DOSAGE (If Supplied By Facility): CTDIvol = ( 13.13 ) mGy, DLP = ( 675.03 ) mGycm TECHNIQUE: Transaxial images were obtained from the dome of the diaphragm to the symphysis pubis without oral contrast. IV 100mL Isovue-[id number] was administered. Sagittal and coronal images were reconstructed. Individualized dose optimization techniques were used for this CT. COMPARISON: None. FINDINGS: The visualized lung bases are unremarkable. The visualized portions of the heart are within normal limits. Normal liver. Gallbladder not visualized which may be consistent with prior cholecystectomy. Normal spleen. Normal pancreas. Normal bilateral adrenal glands. Tiny bilateral nonobstructing renal calculi. No evidence for renal obstruction or mass. Normal visualized stomach. Normal small intestine. Normal colon. Normal appendix is not clearly identified however there is no secondary signs for acute appendicitis. Normal abdominal aorta. Normal inferior vena cava. Normal retroperitoneum. Normal urinary bladder. IUD noted within the endometrial canal at the uterine fundus There is a small left renal cyst. There is small amount of fluid within the cul-de-sac possibly due to recent ovulation Normal abdominal wall. Normal osseous structures. CT/Abdomen/Pelvis W IV Cont ONLY IMPRESSION: Bilateral nephrolithiasis. No evidence for hydronephrosis or ureteral calculus Normal appendix is not visualized however there are no secondary signs for acute appendicitis Small left ovarian cyst is noted with small amount of fluid in the cul-de-sac possibly due to recent ovulation. Clinical correlation recommended If strong clinical suspicion for acute appendicitis repeat scan with oral contrast would be helpful for further evaluation Electronically Signed: Yuniel Gomez MD at 20:17 EDT ,
[2024-04-18] MEDS: 0.9% Normal Saline (1000mL) 1,000 ML 999 ML IV (19:47)
[2024-04-18] MEDS: Ondansetron 4 MG/2 ML Vial IV (19:48)
[2024-04-18 19:52] LABS: Lipase 42 U/L (13-75)
[2024-04-18 20:00] VITALS: PULSE 83; RESP 18; O2SAT 97
--- NOTE | 2024-04-18 20:00 | EDS_ITS ---
HPI History of Present Illness Chief Complaint: Abd Pain Narrative Narrative: Chief complaint and HPI: Right lower quadrant abdominal pain. 24-year-old female presents for evaluation of right lower quadrant abdominal pain. Onset of symptoms have been approximately 1 week. Patient states she saw her PCP for this and had a UA that was negative for UTI. She was for to her [employer]. Patient states she had an ultrasound performed that showed a cyst on her ovary but otherwise unremarkable. Patient denies any vaginal complaints or concern for STD. Patient states she is worried about appendicitis. She denies any fever, chills, chest pain, shortness of breath, nausea, vomiting, diarrhea, constipation. Review of systems: See HPI Medications: As listed on the chart Allergies: As listed on the chart PFSH: Per chart Vital signs: As listed on the chart. Reviewed. Physical exam: Gen: A&O x3, NAD Head: Normocephalic, atraumatic Eyes: No sclera icterus, conjunctiva clear ENT: Moist mucous membranes Neck: Trachea midline, No JVD CV: RRR, no murmurs, no peripheral edema Resp: Lungs CTA BL, no w/r/c GI: Abd soft, non-distended, minimally tender in the right lower quadrant, no r/r/g Musc: Full ROM, no deformity Skin: Warm, dry Neuro: Alert, oriented, grossly intact, sensation intact Psych: Cooperative, appropriate mood and affect [facility] Medical History Anxiety Depression Fracture of fifth metatarsal bone of left foot Migraine Physical exam, pre-employment Home Medications ?Medication ?Instructions ?Recorded ?Last Taken ?Type fluoxetine 40 mg capsule 40 mg PO DAILY 02/09/23 04/05/23 08:15 History Prena-Tab See Rx Instructions .Route .COMPLEX 03/18/23 04/05/23 08:15 History ferrous sulfate 325 mg (65 mg 325 mg PO DAILY 03/18/23 04/05/23 08:15 History iron) tablet (Feosol) acetaminophen 500 mg tablet 1,000 mg (2 x 500 mg) PO Q6H #0 04/28/23 Unknown Rx tabs ibuprofen 600 mg tablet 600 mg PO Q6H #0 tabs 04/28/23 Unknown Rx labetalol 100 mg tablet 100 mg PO BID 04/30/23 Unknown History Allergy/AdvReac Type Severity Reaction Status Date / Time No Known Allergies Allergy Verified 04/18/24 16:06 Surgical History H/O wisdom tooth extraction History of cholecystectomy Social History Smoking Status: Never smoker substance use type: does not use EXAM Physical Exam Const Vital Signs: 04/18/24 16:06 04/18/24 18:06 04/18/24 20:00 Temperature 97.4 F L Temperature Source Temporal Pulse Rate 96 85 83 Respiratory Rate 18 17 18 Blood Pressure 124/91 H Blood Pressure Mean 102 Pulse Ox 98 98 97 Oxygen Delivery Method Room Air Room Air Room Air MDM MDM MDM Narrative Medical decision making narrative: 24-year-old female presents for evaluation of right lower quadrant abdominal pain. Onset 1 week. Has already had pelvic ultrasound as well as UA performed. However on chart review, I am unable to obtain any of these records. Patient's physical exam is relatively benign. Given that her symptoms have been ongoing for 1 week suspect less likely appendicitis. Differential diagnosis includes but is not limited to viral illness, gastroenteritis, IBS, appendicitis, UTI, p regnancy. Patient does have an IUD so suspect less likely . Given patient just had an unremarkable pelvic ultrasound low suspicion for pelvic pathology. NS bolus, Zofran, morphine ordered for symptoms. CBC unremarkable. CMP unremarkable. Lipase unremarkable. UA negative for UTI. CT abdomen pelvis shows bilateral nephrolithiasis without urolithiasis or hydronephrosis. Normal appendix is not visualized however there are no secondary signs for acute appendicitis. Patient also does not have a leukocytosis and symptoms have been ongoing for a week. She has a small left ovarian cyst with a small amount of fluid in the cul-de-sac possibly due to recent ovulation. This is likely the cyst that was found on her recent ultrasound. She is not having any left-sided pain. At this point in time unclear etiology for patient's pain. Patient was updated on all her results she confirmed understanding of the plan. Follow-up with PCP. Return precautions explained. Patient is stable to discharge home. Impression: 1. Right lower quadrant abdominal pain 2. Left ovarian cyst 3. Nephrolithiasis Lab Data Labs: Laboratory Results - last 24 hr 04/18/24 04/18/24 17:20 17:25 WBC 7.0 RBC 4.53 Hgb 12.7 Hct 38.7 MCV 85.4 MCH 28.0 MCHC 32.8 RDW Std Deviation 41.0 RDW Coeff of Clif 13.2 Plt Count 253 MPV 10.3 Immature Gran % (Auto) 0.400 Neut % (Auto) 58.5 Lymph % (Auto) 29.5 Stephens % (Auto) 10.3 H Eos % (Auto) 1.0 Baso % (Auto) 0.3 Absolute Neuts (auto) 4.1 Absolute Lymphs (auto) 2.07 Nucleated RBC % 0 Sodium 138 Potassium 3.6 Chloride 104 Carbon Dioxide 29.0 Anion Gap 5 BUN 9 Creatinine 0.62 Estim Creat Clear Calc 139.70 Est GFR (MDRD) Af Amer 152 Est GFR (MDRD) Non-Af 126 BUN/Creatinine Ratio 14.5 Glucose 99 Calcium 9.6 Total Bilirubin 0.50 AST 16 ALT 19 Alkaline Phosphatase 87 Total Protein 7.5 Albumin 3.6 Globulin 3.9 Albumin/Globulin Ratio 0.9 Lipase 42 Serum , Qual NEGATIVE Urine Color Yellow Urine Clarity Sl. Cloudy Urine pH 6.5 Ur Specific [place] 1.015 Urine Protein 15 H Urine Glucose (UA) Normal Urine Ketones Negative Urine Occult Blood Negative Urine Nitrite Negative Urine Bilirubin Negative Urine Urobilinogen Normal Ur Leukocyte Esterase 25 H Urine RBC 0 SEEN Urine WBC 0-5 SEEN Ur Squamous Epith Cells 5-10 SEEN Amorphous Sediment 1+ URATE Urine Bacteria 0 SEEN Urine Mucus 0 SEEN Radiography Diagnostic Testing: Clinical Impression(s) from Imaging Studies Abdomen/Pelvis CT 04/18/24 19:10 IMPRESSION: Bilateral nephrolithiasis. No evidence for hydronephrosis or ureteral calculus Normal appendix is not visualized however there are no secondary signs for acute appendicitis Small left ovarian cyst is noted with small amount of fluid in the cul-de-sac possibly due to recent ovulation. Clinical correlation recommended If strong clinical suspicion for acute appendicitis repeat scan with oral contrast would be helpful for further evaluation Electronically Signed: Yuniel Gomez MD at 20:17 EDT Reading Location ID and State: [facility] / [place] Tel [phone], Service support , Discharge Plan Triage Chief Complaint: Abd Pain ED Provider: Farrukh Colon Dx/Rx/DC Orders Clinical Impression: Abdominal pain Instructions: ED Abdominal Pain Unkn Cause Fem Prescriptions: No Action fluoxetine 40 mg capsule 40 mg PO DAILY Patient Comments: TAKE 1 CAPSULE BY MOUTH ONCE DAILY ferrous sulfate [Feosol] 325 mg (65 mg iron) tablet 325 mg PO DAILY Prena-Tab See Rx Instructions .ROUTE .COMPLEX Rx Instructions: daily for prenancy acetaminophen 500 mg Tablet 1,000 mg PO Q6H Qty: 0 0RF ibuprofen 600 mg Tablet 600 mg PO Q6H Qty: 0 0RF labetalol 100 mg tablet 100 mg PO BID Primary Care Provider: Maria E Jacobs Referrals: Maria E Jacobs MD [Primary Care Provider] - 3-5 Days Activity Restrictions/Additional Instructions: Return back to the ED if symptoms change or worsen Print Language: Upper Sorbian Disposition Disposition: Home, Self Care Discharge Date/Time: 04/18/24 20:46
== END 2024-04-18 20:46 | disposition home or self-care (01) ==
PROVIDERS: Emergency Provider Surgery; PCP Internal Medicine; Visit Provider Surgery
DX: N20.0 Calculus of kidney (principal); N83.202 Unspecified ovarian cyst, left side; Z97.5 Presence of (intrauterine) contraceptive device
CPT/HCPCS: 74177; 80048; 80053; 81001; 83690; 84703; 85025; 96361; 96374; 99284; J7030; Q9967; A4216; J2405

== ENCOUNTER → 2024-05-05 | Outpatient (CLI) | payer OTHER, MEDICAID, SELFPAY ==
[2024-05-05 10:35] LABS: Absolute Lymphocyte Count 1.35 X10^3/uL (0.83-4.51); Absolute Neutrophil Count 2.8 X10^3/uL (2.0-7.7); Basophil# 0.03 X10^3/uL; Basophil% 0.6 % (0-1); Eosinophil# 0.06 X10^3/uL; Eosinophils% 1.3 % (0-5); Hematocrit 41.8 % (37-47); Hemoglobin 13.4 g/dL (12.0-15.0); Lymphocyte # 1.35 X10^3/ul (0.83-4.51); Lymphocyte % 29.2 % (19-41); Mean Corp Hgb Conc 32.1 g/dL (32-36); Mean Corpuscular Volume 87.4 fL (81-99); Mean Platelet Vol. 10.9 fl (6.2-12.0); Monocyte# 0.42 X10^3/uL; Monocyte% 9.1 % (0-10); NRBC Flagged by Analyzer 0 % (0-5); Neutrophil # 2.75 X10^3/uL (2.7-7.7); Neutrophil % 59.6 % (47-70); Platelet Count 252 K/mm3 (150-450); RBC Distribution Width CV 13.3 % (11.6-14.6); RBC Distribution Width SD 43.2 fl (35.1-43.9); Red Blood Count 4.78 M/mm3 (4.2-5.4); White Blood Count 4.6 K/mm3 (4.4-11.0)
[2024-05-05 11:28] LABS: AST(SGOT) 15 U/L (15-37); Alanine Aminotransfer ALT/SGPT 15 U/L (13-56); Anion Gap 4 (5-15); BUN 10 mg/dL (7-18); BUN/Creat Ratio 14.1 RATIO (10-20); Calcium,Total 9.4 mg/dL (8.5-10.1); Chloride 106 mmol/L (98-107); Cholesterol 183 mg/dL (200); Creatinine, Serum 0.71 mg/dL (0.55-1.02); EST Glomerular Filtration Rate 108 mL/min (>60); Est Glom Filt Rate - Afr Amer 130 mL/min (>60); Glucose 79 mg/dL (74-106); High Density Lipoprotein 53 mg/dL; Potassium 3.7 mmol/L (3.5-5.1); Sodium Level 138 mmol/L (136-145); Triglycerides 56 mg/dL; Very Low Density Lipoprotein 11 mg/dL (5-40)
[2024-05-06 04:07] LABS: LDL, Direct 120295 125 mg/dL (0-99)
== END | disposition home or self-care (01) ==
PROVIDERS: PCP Internal Medicine; Referring Provider Physician Assistant; Visit Provider Physician Assistant
DX: L70.0 Acne vulgaris (principal); Z79.899 Other long term (current) drug therapy
CPT/HCPCS: 36415; 80048; 80061; 83721; 84450; 84460; 85025

== ENCOUNTER 2024-07-30 18:59 | Emergency (ER) | payer OTHER, SELFPAY ==
[2024-07-30 19:01] VITALS: PULSE 83; RESP 18; TEMP 36.2; O2SAT 99; BMI 28.3
--- NOTE | 2024-07-30 19:35 | ED.RN ---
left ring finger swollen unable to manually remove ring. ring cutter used to successfully removed rings. rings placed in plastic cup and given to the patient. skin intact. doctor updated.
--- NOTE | 2024-07-30 19:50 | EDS_ITS ---
HPI History of Present Illness HPI Narrative: Patient presents because her wedding ring is stuck on her finger. Patient states she put that on a year ago. Patient states she tried to take it off today. Patient states she has been unable to take it off. Patient states she feels that it needs to be cut off. Patient denies any paresthesias or weakness. Patient denies any trauma or injury. Patient denies any cyanosis, pallor, or discoloration to the finger. Chief Complaint: Upper Extremity Injury Informant: patient Onset/Context/Timing Onset: Month(s) Context: Gradual Onset Timing: Continuous Quality of Pain: Throbbing Location: Left ring finger Worsened by: Attempting to remove the ring Relieved by: Nothing Associated Symptoms Associated Symptoms: Negative for Parasthesia or Weakness PFSH [facility] Medical History Pre-eclampsia Elevated blood pressure affecting in third trimester, antepartum Cramping affecting , antepartum SROM (spontaneous rupture of membranes) 38 weeks gestation of Fracture of fifth metatarsal bone of left foot Anxiety Depression Migraine Physical exam, pre-employment Home Medications ?Medication ?Instructions ?Recorded ?Last Taken ?Type fluoxetine 40 mg capsule 40 mg PO DAILY 02/09/23 04/05/23 08:15 History Prena-Tab See Rx Instructions .Route .COMPLEX 03/18/23 04/05/23 08:15 History ferrous sulfate 325 mg (65 mg 325 mg PO DAILY 03/18/23 04/05/23 08:15 History iron) tablet (Feosol) acetaminophen 500 mg tablet 1,000 mg (2 x 500 mg) PO Q6H #0 04/28/23 Unknown Rx tabs ibuprofen 600 mg tablet 600 mg PO Q6H #0 tabs 04/28/23 Unknown Rx labetalol 100 mg tablet 100 mg PO BID 04/30/23 Unknown History Allergy/AdvReac Type Severity Reaction Status Date / Time No Known Allergies Allergy Verified 07/30/24 19:01 Surgical History Delivery by section H/O wisdom tooth extraction History of cholecystectomy Social History Smoking Status: Never smoker substance use type: does not use ROS ROS ED Constitutional Constitutional ED: Denies chills or fever(s) Eyes Eyes: Denies blurry vision or change in vision ENT ENT ED: Denies rhinorrhea or sore throat Cardiovascular Cardiovascular: Denies chest pain or palpitations Respiratory/Chest Respiratory/Chest: Denies cough or dyspnea Gastrointestinal Gastrointestinal: Denies nausea or vomiting Genitourinary Genitourinary ED: Denies dysuria or hematuria Musculoskeletal Musculoskeletal: Denies back pain or neck pain Integumentary Denies abscess or rash Neurologic Neurologic: Denies headache(s) or weakness Allergic/Immunologic Allergic/Immunologic ED: Denies mouth swelling or urticaria EXAM Physical Exam Const Vital Signs: 07/30/24 19:01 Temperature 97.1 F L Temperature Source Temporal Pulse Rate 83 Respiratory Rate 18 Pulse Ox 99 Oxygen Delivery Method Room Air Positive well nourished and well developed General Appearance ED: well developed and NAD HEENT Reports moist mucous membranes Neck full ROM and supple Extremity Extremity Narrative: There is some edema of the left ring finger. There is some mild erythema around the ring. There is no warmth. There is no induration. Sensation is intact to light touch in all digits. Capillary refill is less than 2 seconds in all digits. There is good range of motion of the MP, PIP, and DIP joints. Neuro oriented x3, CN's II-XII intact bilaterally, moves all extremities, no focal motor deficits and no sensory deficits noted Sensorium / Orientation: alert Motor Exam: strength 5/5 throughout Psych mental status grossly normal MDM MDM MDM Narrative Medical decision making narrative: The ring was removed with a ring cutter. Patient tolerated it well. Patient was instructed to follow-up with her primary care physician as needed. Patient was instructed return if worse in any way. Patient understood and was agreeable with the plan. All questions were answered. Discharge Plan Triage Chief Complaint: Upper Extremity Injury ED Provider: Cory Calloway Dx/Rx/DC Orders Clinical Impression: Tight ring on finger Instructions: ED Ring Removal (Adult) Prescriptions: No Action fluoxetine 40 mg capsule 40 mg PO DAILY Patient Comments: TAKE 1 CAPSULE BY MOUTH ONCE DAILY ferrous sulfate [Feosol] 325 mg (65 mg iron) tablet 325 mg PO DAILY Prena-Tab See Rx Instructions .ROUTE .COMPLEX Rx Instructions: daily for prenancy acetaminophen 500 mg Tablet 1,000 mg PO Q6H Qty: 0 0RF ibuprofen 600 mg Tablet 600 mg PO Q6H Qty: 0 0RF labetalol 100 mg tablet 100 mg PO BID Primary Care Provider: Maria E Jacobs Referrals: Maria E Jacobs MD [Primary Care Provider] - As Needed Print Language: Yakut Disposition Disposition: Home, Self Care
== END 2024-07-30 20:03 | disposition home or self-care (01) ==
PROVIDERS: Emergency Provider Emergency Medicine; PCP Internal Medicine; Visit Provider Emergency Medicine
DX: S60.444A External constriction of right ring finger, initial encounter (principal); X58.XXXA Exposure to other specified factors, initial encounter
CPT/HCPCS: 99282

== ENCOUNTER → 2024-11-30 | Outpatient (CLI) | payer OTHER, SELFPAY ==
[2024-11-30 10:49] LABS: ALB/GLOB Ratio 1.4 RATIO (0.9-2.4); AST(SGOT) 18 U/L (<=31); Alanine Aminotransfer ALT/SGPT 9 U/L (<=34); Albumin, Serum 4.2 g/dL (3.5-5.0); Alkaline Phosphatase 93 U/L (35-104); Anion Gap 11 (5-15); BUN 7 mg/dL (4-19); BUN/Creat Ratio 10.9 RATIO (10-20); Calcium,Total 9.2 mg/dL (7.6-11.0); Chloride 105 mmol/L (98-108); Creatinine, Serum 0.66 mg/dL (0.70-1.20); EST Glomerular Filtration Rate 126 (>60); Free T3 2.8 pg/mL (2.18-3.98); Globulin 3.1 g/dL (2.2-4.2); Glucose 87 mg/dL (70-99); Protein, Total 7.3 g/dL (5.9-8.4); Sodium Level 139 mmol/L (133-145); Total Bilirubin 0.32 mg/dL (0.00-1.30)
== END | disposition home or self-care (01) ==
LOC: MTLAB 07:09
PROVIDERS: PCP Internal Medicine; Referring Provider Physician Assistant; Visit Provider Physician Assistant
DX: L65.9 Nonscarring hair loss, unspecified (principal); L70.0 Acne vulgaris
CPT/HCPCS: 36415; 80053; 84439; 84443; 84481